=== PATIENT | female | born 1945 | race Caucasian/White ===

== ENCOUNTER 2016-07-14 08:15 | Emergency (ER) | payer OTHER ==
[2016-07-14 08:21] VITALS: TEMP 97.5; BMI 24.7
[2016-07-14] MEDS ORDERED: KETOROLAC TROMETHAMINE 30 MG/1 ML VIAL IVPUSH ONE (09:17)
[2016-07-14] MEDS ORDERED: SODIUM CHLORIDE 1,000 ML IV SCH (09:30)
[2016-07-14 09:44] LABS: BASOPHIL 0.5 % (0-2.0); MCH 29.4 pg (25.7-33.7); MCHC 32.9 g/dl (32.0-36.0); MEAN CELL VOLUME 89.3 fl (80-96); MEAN PLT VOLUME 7.9 fl (7.5-11.1); NEUTROPHILS 78.8 % (42.8-82.8); PLATELET COUNT 400 K/MM3 (134-434); RDW 12.5 % (11.6-15.6); WHITE BLOOD COUNT 15.4 K/mm3 (4.0-10.0)
[2016-07-14] MEDS ORDERED: KETOROLAC TROMETHAMINE 30 MG/1 ML VIAL ONE (09:49)
--- NOTE | 2016-07-14 10:02 | PDOC ---
History of Present Illness - General History Source: Patient Exam Limitations: No Limitations - History of Present Illness Initial Comments: 07/14/16 10:19 The patient is a 70 year old female, accompanied by son, with a significant past medical history of diverticulitis, HTN, HLD, who presents to the emergency department with L flank pain radiating to her L lower back. The patient reports her pain is similar to her previous Colitis pain however states the back pain is new. She states her pain is associated with slight nausea , 1 episode of vomiting (nonbloody, nonbilious) and an episode of diarrhea. As per son, the patient has been on a probiotic regimen however has recently stopped. She states she took Ciproflacin and Flagyl tlast night however her pain has not resolved. The patient reports to the ED for further evaluation. She denies chest pain, headache or dizziness. She denies fever, chills, constipation. She denies dysuria, frequency, urgency or hematuria. Allergies: ibandronate sodium Past surgical history: C section, hysterectomy Social history: Noncontributory GI: Dr. Prieto PCP: Dr. Renner <Mercedes Washington - Last Filed: 07/14/16 16:41> <Jazzmine Marie - Last Filed: 07/14/16 18:01> - General Chief Complaint: Pain Stated Complaint: ABD PAIN Time Seen by Provider: 07/14/16 08:57 Past History <Mercedes Washington - Last Filed: 07/14/16 16:41> - Past Medical History GI Disorders: Yes (colitis) HTN: Yes Hypercholesterolemia: Yes - Psycho/Social/Smoking Cessation Hx Suicidal Ideation: No Smoking Status: No Smoking History: Never smoked Number of Cigarettes Smoked Daily: 0 Information on smoking cessation initiated: No Hx Alcohol Use: No Drug/Substance Use Hx: No Substance Use Type: None <Jazzmine Marie - Last Filed: 07/14/16 18:01> - Past Medical History Allergies/Adverse Reactions: Allergies Allergy/AdvReac Type Severity Reaction Status Date / Time ibandronate sodium Allergy Hives Verified 07/14/16 08:21 [From Boniva] Home Medications: Ambulatory Orders Dexlansoprazole [Dexilant -] 60 mg PO DAILY 09/25/15 Lipase/Protease/Amylase [Valentin Partida 24,000 Units Capsule] 1 each PO AC 09/25/15 Lisinopril/Hydrochlorothiazide [Lisinopril-Hctz 20-25 mg Tab] 1 each PO DAILY Simvastatin 10 mg PO HS 09/25/15 Ciprofloxacin [Cipro -] 500 mg PO Q12H #14 tablet 07/14/16 Metronidazole [Flagyl -] 500 mg PO TID #21 tablet 07/14/16 Ursodiol [Actigall] 300 mg PO BID #14 capsule 07/14/16 Review of Systems - Review of Systems Able to Perform ROS?: Yes Comments:: 07/14/16 10:19 Constitutional - Pt denies Fever, Chills, weakness, HEENT: Denies vision changes, sore throat RESPIRATORY: Denies cough, sob, hemoptysis CARDIAC: Denies chest pain, palpitations, light headedness, leg swelling ABD/GI: +LLQ abdominal pain.+ nausea. +vomiting. Denies blood per rectum, melena , diarrhea : + L flank pain. Denies dysuria, frequency, discharge MUSCULOSKELETAL - Denies back pain, joint swelling SKIN - Denies bruising, erythema, rash NEUROLOGICAL: Denies headache, numbness, focal weakness, tingling, ataxia, weakness HEMATOLOGIC: Denies anemia, easy bruising, easy bleeding <Mercedes Washington - Last Filed: 07/14/16 16:41> *Physical Exam - Vital Signs Last Vital Signs Temp Pulse Resp BP Pulse Ox 97.5 F L 70 18 135/66 99 07/14/16 08:18 07/14/16 08:18 07/14/16 08:18 07/14/16 08:18 07/14/16 08:18 - Physical Exam Comments: 07/14/16 10:19 GENERAL: The patient is awake, alert, and fully oriented, Nontoxic - in no acute distress. HEAD: Normocephalic, atraumatic. EYES: Extraocular movements intact, sclera anicteric, conjunctiva clear. ENT: Normal voice, moist mucous membranes. NECK: Normal range of motion, supple without lymphadenopathy, JVD, or masses. LUNGS: Breath sounds equal, clear to auscultation bilaterally. No wheezes, no crackles, no rales. HEART: Regular rate and rhythm, normal S1 and S2 without murmur, rub or gallop. ABDOMEN: + L sided CVA tenderness. + LUQ tenderness. Soft, normoactive bowel sounds. No guarding, no rebound. No masses. EXTREMITIES: Normal range of motion, no edema. No clubbing or cyanosis. No cords , erythema, or tenderness. NEUROLOGICAL: Fully Oriented, Alert, Normal Mood/Affect, Motor Strength 5/5. No facial asymmetry, Normal speech. SKIN: Warm, Dry, normal turgor, no rashes or lesions noted. <Mercedes Washington - Last Filed: 07/14/16 16:41> - Vital Signs Last Vital Signs Temp Pulse Resp BP Pulse Ox 97.5 F L 70 18 135/66 99 07/14/16 08:18 07/14/16 08:18 07/14/16 08:18 07/14/16 08:18 07/14/16 08:18 <Jazzmine Marie - Last Filed: 07/14/16 18:01> ED Treatment Course - LABORATORY CBC & Chemistry Diagram: 07/14/16 09:34 07/14/16 09:34 - ADDITIONAL ORDERS Additional order review: Laboratory Results 07/14/16 09:34 Sodium 135 L Potassium 4.3 Chloride 99 Carbon Dioxide 26 Anion Gap 10 BUN 11 Creatinine 0.7 D Creat Clearance w eGFR > 60 Random Glucose 99 Calcium 9.1 Total Bilirubin 0.6 D AST 19 D ALT 18 D Alkaline Phosphatase 82 Total Protein 7.4 Albumin 3.7 07/14/16 09:34 RBC 3.79 MCV 89.3 MCHC 32.9 RDW 12.5 MPV 7.9 Neutrophils % 78.8 Lymphocytes % 12.7 Monocytes % 8.0 Eosinophils % 0.0 D Basophils % 0.5 - Medications Given in the ED: ED Medications Discontinued Medications Generic Name Dose Route Start Last Admin Trade Name Freq PRN Reason Stop Dose Admin Ketorolac Tromethamine 30 mg 07/14/16 09:17 07/14/16 09:53 Toradol Injection - IVPUSH 07/14/16 09:18 30 mg ONCE ONE Administration <Mercedes Washington - Last Filed: 07/14/16 16:41> - LABORATORY CBC & Chemistry Diagram: 07/14/16 09:34 07/14/16 09:34 - ADDITIONAL ORDERS Additional order review: 07/14/16 09:34 RBC 3.79 MCV 89.3 MCHC 32.9 RDW 12.5 MPV 7.9 Neutrophils % 78.8 Lymphocytes % 12.7 Monocytes % 8.0 Eosinophils % 0.0 D Basophils % 0.5 - RADIOLOGY Radiology Studies Ordered: Category Date Time Status ABDOMEN [id number] [RAD] Stat Radiology 07/14/16 09:01 Ordered - Medications Given in the ED: ED Medications Discontinued Medications Generic Name Dose Route Start Last Admin Trade Name Angela PRN Reason Stop Dose Admin Ketorolac Tromethamine 30 mg 07/14/16 09:17 07/14/16 09:53 Toradol Injection - IVPUSH 07/14/16 09:18 30 mg ONCE ONE Administration <Jazzmine Marie - Last Filed: 07/14/16 18:01> Medical Decision Making - Medical Decision Making 07/14/16 16:26 Dr. Renner was paged via phone answering service at 16:26 and discussed the case at 16:28 Dr. Prieto was paged via phone answering service at 16:41. Awaiting call back. <Mercedes Washington - Last Filed: 07/14/16 16:41> - Medical Decision Making 07/14/16 12:24 I, Dr. Jazzmine Marie, attest that the scribes documentation that appears above has been prepared under my direction and personally reviewed by me. I confirmed that the note above accurately reflects all work, treatment, procedures, and medical decision-making performed by me. 07/14/16 17:24 Case discussed with pt's pcp,initial plan to admit to hospital with gi and sx consult, pt initialy agreed but has now decided to sign out ama, case discussed with Dr Prieto of GI recommends giving pt 1 liter of fluid prior to going ama, with one 1 gram of rocephin ivpb in ed. wants pt to receive Actigill 300mg po bid .He will see pt in office next week, pt to call on saturday for appointment. Pt also told to drink 2-3 liters of water at home orally as per Dr Prieto instructions. Pt aware of risk with signing ama and still signed ama, pt's son at bedside,both the patient and her son given opportunityto ask and have all questions answered before signing ama. Pt will return to ed for inc painin abdomen, fever or as needed. 07/14/16 17:57 <Jazzmine Marie - Last Filed: 07/14/16 18:01> *DC/Admit/Observation/Transfer - Attestations Scribe Attestion: 07/14/16 10:19 Documentation prepared by Mercedes Washington, acting as medical technologist clinical for Jazzmine Marie MD <Mercedes Washington - Last Filed: 07/14/16 16:41> - Discharge Dispostion Admit: No <Jazzmine Marie - Last Filed: 07/14/16 18:01> Diagnosis at time of Disposition: Diverticulitis - Discharge Dispostion Disposition: AGAINST MEDICAL ADVICE Condition at time of disposition: Stable - Prescriptions Prescriptions: Ursodiol [Actigall] 300 mg PO BID #14 capsule Ciprofloxacin [Cipro -] 500 mg PO Q12H #14 tablet Metronidazole [Flagyl -] 500 mg PO TID #21 tablet - Referrals Referrals: Jose Luis Prieto MD [Primary Care Provider] - Aroldo Huitron MD [Staff Physician] -
[2016-07-14] MEDS ORDERED: METRONIDAZOLE 500 MG PREMIXED 100 ML IVPB ONE ×2 (10:06→10:51)
[2016-07-14] MEDS ORDERED: LEVOFLOXACIN 500 MG IVPB 100 ML IVPB ONE ×2 (10:06→10:52)
[2016-07-14 10:13] LABS: ALBUMIN 3.7 g/dl (3.4-5.0); ALK PHOS 82 U/L (45-117); ANION GAP 10 (8-16); BILIRUBIN,TOTAL 0.6 mg/dL (0.2-1.0); CALCIUM 9.1 mg/dL (8.5-10.1); CO2 26 mmol/L (21-32); CREATININE 0.7 mg/dL (0.55-1.02); GLUCOSE,RANDOM 99 mg/dL (74-106); SGPT/ALT 18 U/L (12-78); TOT PROT 7.4 g/dl (6.4-8.2)
[2016-07-14 10:15] LABS: SGOT/AST 19 U/L (15-37)
[2016-07-14 10:17] LABS: URINE APPEARANCE CLEAR; URINE BILIRUBIN NEGATIVE (NEGATIVE); URINE BLOOD NEGATIVE (NEGATIVE); URINE COLOR LTYELLOW; URINE GLUCOSE (UA) NEGATIVE (NEGATIVE); URINE KETONE NEGATIVE (NEGATIVE); URINE LEUK ESTERASE NEGATIVE (NEGATIVE); URINE NITRITE NEGATIVE (NEGATIVE); URINE PROTEIN NEGATIVE (NEGATIVE); URINE UROBILINOGEN NEGATIVE E.U./dl (0.2-1.0)
[2016-07-14 11:39] LABS: AMYLASE 58 U/L (25-115)
[2016-07-14] MEDS ORDERED: CEFTRIAXONE 1 GM in DEXTROSE 5%-WATER - 100 ML IVPB ONE (17:21)
[2016-07-14] MEDS ORDERED: SODIUM CHLORIDE 0.9% 500 ML INFUS.BAG IV STA (17:23)
[2016-07-14 17:24] LABS: INR 1.21 (0.82-1.09); PROTHROMBIN TIME (PATIENT) 13.4 SEC (9.98-11.88)
[2016-07-14] MEDS ORDERED: CEFTRIAXONE 50 ML ONE (17:29)
[2016-07-14 17:54] VITALS: BP 120/59; PULSE 66
--- NOTE | 2016-07-15 18:18 | EKG ---
Test Reason : Blood Pressure : / mmHG Vent. Rate : 073 BPM Atrial Rate : 073 BPM P-R Int : 172 ms QRS Dur : 078 ms QT Int : 420 ms P-R-T Axes : 024 027 049 degrees QTc Int : 462 ms NORMAL SINUS RHYTHM NORMAL ECG WHEN COMPARED WITH ECG OF 04-NOV-2012 00:39, NO SIGNIFICANT CHANGE WAS FOUND Confirmed by YARELY GALINDO MD ([id number]) on 07/15/2016 6:17:52 PM Referred By: Confirmed By:YARELY GALINDO MD
== END 2016-07-14 19:16 | disposition left against medical advice (07) ==
LOC: JER 08:15
PROC: 3E03329 Introduction of Other Anti-infective into Peripheral Vein, Percutaneous Approach (ICD-10-PCS; principal; 2016-07-14)
PROC: 3E03329 Introduction of Other Anti-infective into Peripheral Vein, Percutaneous Approach (ICD-10-PCS; 2016-07-14)
PROC: 3E03329 Introduction of Other Anti-infective into Peripheral Vein, Percutaneous Approach (ICD-10-PCS; 2016-07-14)
PROC: 3E0333Z Introduction of Anti-inflammatory into Peripheral Vein, Percutaneous Approach (ICD-10-PCS; 2016-07-14)
DX: K57.92 Diverticulitis of intestine, part unspecified, without perforation or abscess without bleeding (principal); I10 Essential (primary) hypertension; E78.5 Hyperlipidemia, unspecified; E78.00 Pure hypercholesterolemia, unspecified
CPT/HCPCS: 36415; 74177-TC; 80053; 81003; 82150; 83690; 85025; 85610; 93005; 93010; 99282-25; Q9967

== ENCOUNTER 2017-08-20 17:02 | Emergency (ER) | payer OTHER ==
[2017-08-20 17:15] VITALS: TEMP 98.1; BMI 24.7
--- NOTE | 2017-08-20 17:16 | PDOC ---
Rapid Medical Evaluation Time Seen by Provider: 08/20/17 17:12 Medical Evaluation: Allergies Allergy/AdvReac Type Severity Reaction Status Date / Time ibandronate sodium Allergy Hives Verified 08/20/17 17:12 [From Sandra] 08/20/17 17:15 I have performed a brief in-person evaluation of this patient. The patient presents with a chief complaint of colitis flare up. Patient reports pain to left lower quadrant since yesterday with a bloating feeling. Denies nausea, vomiting or diarrhea. States normal stool this am with no blood Pertinent physical exam finding are NAD lungs clear bilaterally abd +tenderness to left lower quadrant I have ordered the following: labs ordered The patient will proceed to the ED for further evaluation.
[2017-08-20] MEDS ORDERED: morphine SULFATE 4 MG/ML VIAL IVPUSH STA (18:01)
[2017-08-20] MEDS ORDERED: SODIUM CHLORIDE 1,000 ML IV STA (18:01)
[2017-08-20] MEDS ORDERED: morphine SULFATE 4 MG/ML VIAL ONE (18:20)
[2017-08-20 18:45] LABS: URINE APPEARANCE SLCLOUDY; URINE BILIRUBIN NEGATIVE (<2.0 mg/dL); URINE BLOOD NEGATIVE (NEGATIVE); URINE COLOR YELLOW; URINE GLUCOSE (UA) NEGATIVE (NEGATIVE); URINE KETONE NEGATIVE (NEGATIVE); URINE LEUK ESTERASE NEGATIVE (NEGATIVE); URINE NITRITE NEGATIVE (NEGATIVE); URINE PROTEIN NEGATIVE (NEGATIVE); URINE UROBILINOGEN NEGATIVE mg/dL (0.2-1.0)
--- NOTE | 2017-08-20 19:56 | PDOC ---
History of Present Illness - General History Source: Patient Exam Limitations: No Limitations - History of Present Illness Initial Comments: 08/20/17 19:57 The patient is a 71 year old female with a significant past medical history of acute diverticulitis, colitis, colon polyps, HTN and HLD who presents to the emergency department complaining of intermittent episodes of abdominal pain radiating to LLQ since this morning. The patient describes LLQ pain as moderate to severe. The patient describes having a heavy belly. The patient reports having recurrent episodes of abdominal pain which she has been previously admitted for. Of note, patient admits her most recent colonoscopy was in June from her GI. As per patient, her GI specialist recommends evaluation for possible colostomy if patient is readmitted. The patient denies chest pain, dyspnea, headache, and dizziness. Denies fevers, chills, nausea, vomiting, diarrhea, and constipation. Denies dysuria, frequency, urgency, and hematuria. Allergies: Ibandronate sodium, Levofloxacin Past surgical history: C section, hysterectomy Social history: No reported cigarette, alcohol, or drug use. GI: Dr. Prieto PCP: Dr. Renner <Oral Mckeon - Last Filed: 08/20/17 20:04> <Marci Sauer - Last Filed: 08/21/17 00:41> - General Chief Complaint: Pain, Acute Stated Complaint: LEFT SIDE PAIN Time Seen by Provider: 08/20/17 17:12 Past History <Oral Mckeon - Last Filed: 08/20/17 20:04> - Past Medical History COPD: No GI Disorders: Yes (colitis) HTN: Yes Hypercholesterolemia: Yes - Suicide/Smoking/Psychosocial Hx Smoking Status: No Smoking History: Never smoked Number of Cigarettes Smoked Daily: 0 Hx Alcohol Use: No Drug/Substance Use Hx: No Substance Use Type: None <Marci Sauer - Last Filed: 08/21/17 00:41> - Past Medical History Allergies/Adverse Reactions: Allergies Allergy/AdvReac Type Severity Reaction Status Date / Time ibandronate sodium Allergy Hives Verified 08/20/17 17:12 [From Boniva] levofloxacin [From Levaquin] Allergy Verified 08/20/17 18:51 Home Medications: Ambulatory Orders Dexlansoprazole [Dexilant -] 60 mg PO DAILY 05/08/16 Lisinopril/Hydrochlorothiazide [Lisinopril-Hctz 20-25 mg Tab] 1 each PO DAILY Simvastatin 10 mg PO HS 09/25/15 Ursodiol [Actigall] 300 mg PO BID #14 capsule 07/14/16 Ciprofloxacin [Cipro (Restricted To Id)] 500 mg PO Q12H #20 tablet 08/20/17 Oxycodone HCl/Acetaminophen [Percocet 5-325 mg Tablet] 1 tab PO Q6H PRN #4 tablet MDD 4 08/20/17 metroNIDAZOLE [Flagyl -] 250 mg PO TID #21 tablet 08/20/17 Review of Systems - Review of Systems Able to Perform ROS?: Yes Comments:: 08/20/17 19:57 CONSTITUTIONAL: Absent: fever, chills, diaphoresis, generalized weakness, malaise, loss of appetite HEENT: Absent: rhinorrhea, nasal congestion, throat pain, throat swelling, difficulty swallowing, mouth swelling, ear pain, eye pain, visual Changes CARDIOVASCULAR: Absent: chest pain, syncope, palpitations, irregular heart rate, lightheadedness , peripheral edema RESPIRATORY: Absent: cough, shortness of breath, dyspnea with exertion, orthopnea, wheezing, stridor, hemoptysis GASTROINTESTINAL: +abdominal pain. Absent: abdominal distension, nausea, vomiting, diarrhea, constipation, melena, hematochezia GENITOURINARY: Absent: dysuria, frequency, urgency, hesitancy, hematuria, flank pain, genital pain MUSCULOSKELETAL: Absent: myalgia, arthralgia, joint swelling SKIN: Absent: rash, itching, pallor HEMATOLOGIC/IMMUNOLOGIC: Absent: easy bleeding, easy bruising, lymphadenopathy, frequent infections ENDOCRINE: Absent: unexplained weight gain, unexplained weight loss, heat intolerance, cold intolerance NEUROLOGIC: Absent: headache, focal weakness or paresthesias, dizziness, unsteady gait, seizure, mental status changes, bladder or bowel incontinence PSYCHIATRIC: Absent: anxiety, depression, suicidal or homicidal ideation, hallucinations. <Oral Mckeon - Last Filed: 08/20/17 20:04> *Physical Exam - Vital Signs Last Vital Signs Temp Pulse Resp BP Pulse Ox 98.1 F 83 19 135/50 100 08/20/17 17:12 08/20/17 17:12 08/20/17 17:12 08/20/17 17:12 08/20/17 17:12 - Physical Exam Comments: 08/20/17 19:58 GENERAL: Well developed, well nourished. Awake and alert. No acute distress. HEENT: Normocephalic, atraumatic. PERRLA, EOMI. No conjunctival pallor. Sclera are non- icteric. Moist mucous membranes. Oropharynx is clear. NECK: Supple. Full ROM. No JVD. Carotid pulses 2+ and symmetric, without bruits. No thyromegaly. No lymphadenopathy. CARDIOVASCULAR: Regular rate and rhythm. No murmurs, rubs, or gallops. Distal pulses are 2+ and symmetric. PULMONARY: No evidence of respiratory distress. Lungs clear to auscultation bilaterally. No wheezing, rales or rhonchi. ABDOMINAL: +Tenderness to LLQ. +Hyperactive bowel sounds. Soft. Non-distended. No rebound or guarding. No organomegaly. MUSCULOSKELETAL Normal range of motion at all joints. No bony deformities or tenderness. No CVA tenderness. EXTREMITIES: No cyanosis. No clubbing. No edema. No calf tenderness. SKIN: Warm and dry. Normal capillary refill. No rashes. No jaundice. NEUROLOGICAL: Alert, awake, appropriate. Cranial nerves 2-12 intact. No deficits to light touch and temperature in face, upper extremities and lower extremities. No motor deficits in the in face, upper extremities and lower extremities. Normoreflexic in the upper and lower extremities. Normal speech. Toes are down- going bilaterally. Gait is normal without ataxia. PSYCHIATRIC: Cooperative. Good eye contact. Appropriate mood and affect. <Oral Mckeon - Last Filed: 08/20/17 20:04> - Vital Signs Last Vital Signs Temp Pulse Resp BP Pulse Ox 98.1 F 83 19 135/50 100 08/20/17 17:12 08/20/17 17:12 08/20/17 17:12 08/20/17 17:12 08/20/17 17:12 <Marci Sauer - Last Filed: 08/21/17 00:41> ED Treatment Course - LABORATORY CBC & Chemistry Diagram: 08/20/17 17:45 08/20/17 17:45 - ADDITIONAL ORDERS Additional order review: Laboratory Results 08/20/17 08/20/17 18:24 17:45 Sodium Cancelled Potassium Cancelled Chloride Cancelled Carbon Dioxide Cancelled Anion Gap Cancelled BUN Cancelled Creatinine Cancelled Creat Clearance w eGFR Cancelled Random Glucose Cancelled Calcium Cancelled Total Bilirubin Cancelled AST Cancelled ALT Cancelled Alkaline Phosphatase Cancelled Total Protein Cancelled Albumin Cancelled Urine Color Yellow Urine Appearance Slcloudy Urine pH 7.0 Ur Specific [place] 1.009 Urine Protein Negative Urine Glucose (UA) Negative Urine Ketones Negative Urine Blood Negative Urine Nitrite Negative Urine Bilirubin Negative Urine Urobilinogen Negative Ur Leukocyte Esterase Negative - Medications Given in the ED: ED Medications Discontinued Medications Generic Name Dose Route Start Last Admin Trade Name Tuq PRN Reason Stop Dose Admin Levofloxacin 500 mg in 100 mls @ 100 mls/hr 08/20/17 17:58 08/20/17 18:25 Levaquin 500 Mg Premixed Ivpb - IVPB 08/20/17 18:57 100 mls/hr ONCE ONE Administration Metronidazole 500 mg in 100 mls @ 100 mls/hr 08/20/17 17:59 08/20/17 18:25 Flagyl 500mg Premixed Ivpb - IVPB 08/20/17 18:58 100 mls/hr ONCE ONE Administration Sodium Chloride 1,000 mls @ 1,000 mls/hr 08/20/17 18:01 08/20/17 18:25 Normal Saline - IV 08/20/17 19:00 1,000 mls/hr ASDIR STA Administration Morphine Sulfate 4 mg 08/20/17 18:01 08/20/17 18:25 Morphine Sulfate IVPUSH 08/20/17 18:02 4 mg ONCE STA Administration <Oral Mckeon - Last Filed: 08/20/17 20:04> - LABORATORY CBC & Chemistry Diagram: 08/20/17 17:45 08/20/17 19:26 - ADDITIONAL ORDERS Additional order review: Laboratory Results 08/20/17 08/20/17 18:24 17:45 Sodium Cancelled Potassium Cancelled Chloride Cancelled Carbon Dioxide Cancelled Anion Gap Cancelled BUN Cancelled Creatinine Cancelled Creat Clearance w eGFR Cancelled Random Glucose Cancelled Calcium Cancelled Total Bilirubin Cancelled AST Cancelled ALT Cancelled Alkaline Phosphatase Cancelled Total Protein Cancelled Albumin Cancelled Urine Color Yellow Urine Appearance Slcloudy Urine pH 7.0 Ur Specific [place] 1.009 Urine Protein Negative Urine Glucose (UA) Negative Urine Ketones Negative Urine Blood Negative Urine Nitrite Negative Urine Bilirubin Negative Urine Urobilinogen Negative Ur Leukocyte Esterase Negative - Medications Given in the ED: ED Medications Discontinued Medications Generic Name Dose Route Start Last Admin Trade Name Angela PRN Reason Stop Dose Admin Levofloxacin 500 mg in 100 mls @ 100 mls/hr 08/20/17 17:58 08/20/17 18:25 Levaquin 500 Mg Premixed Ivpb - IVPB 08/20/17 18:57 100 mls/hr ONCE ONE Administration Metronidazole 500 mg in 100 mls @ 100 mls/hr 08/20/17 17:59 08/20/17 18:25 Flagyl 500mg Premixed Ivpb - IVPB 08/20/17 18:58 100 mls/hr ONCE ONE Administration Sodium Chloride 1,000 mls @ 1,000 mls/hr 08/20/17 18:01 08/20/17 18:25 Normal Saline - IV 08/20/17 19:00 1,000 mls/hr ASDIR STA Administration Morphine Sulfate 4 mg 08/20/17 18:01 08/20/17 18:25 Morphine Sulfate IVPUSH 08/20/17 18:02 4 mg ONCE STA Administration <Marci Sauer - Last Filed: 08/21/17 00:41> Medical Decision Making - Medical Decision Making 08/20/17 23:31 81-year-old female with a history of recurrent diverticulitis presents with left lower quadrant pain. She denies fever, chills, nausea, vomiting or bloody stools. She has some discomfort upon deep palpation in left lower quadrant CBC is unremarkable. There is no leukocytosis Chemistries were reviewed I spoke with her air quality specialist. Dr. Prieto and he felt that after IV fluids and a gram of Rocephin she could be discharged home The plan is for her to take Cipro and Flagyl by mouth and follow-up with air quality specialist. She has had Cipro by mouth in the past with no problem. However, today she got Levaquin IV and had some minor irritation at the Hep- Lock site, so it was discontinued. She did not have any hives, sensation of throat closing Patient has had multiple CAT scans that have shown diverticulitis. After discussion with the family and the air quality specialist. It was decided to empirically treat her for diverticulitis with the understanding if her symptoms should not resolve or continued, she should return for imaging studies IMP probable diverticulitis 08/20/17 23:37 <Marci Sauer - Last Filed: 08/21/17 00:41> *DC/Admit/Observation/Transfer - Attestations Scribe Attestion: 08/20/17 20:04 Documentation prepared by Oral Mckeon, acting as medical librarian for Marci Sauer MD. <Oral Mckeon - Last Filed: 08/20/17 20:04> <Marci Sauer - Last Filed: 08/21/17 00:41> Diagnosis at time of Disposition: Diverticulitis Qualifiers: Diverticulitis site: unspecified part of intestinal tract Diverticulitis bleeding: without bleeding Diverticulitis complication: unspecified complication status Qualified Code(s): K57.92 - Diverticulitis of intestine, part unspecified, without perforation or abscess without bleeding - Discharge Dispostion Disposition: HOME Condition at time of disposition: Stable - Prescriptions Prescriptions: Ciprofloxacin [Cipro (Restricted To Id)] 500 mg PO Q12H #20 tablet metroNIDAZOLE [Flagyl -] 250 mg PO TID #21 tablet Oxycodone HCl/Acetaminophen [Percocet 5-325 mg Tablet] 1 tab PO Q6H PRN #4 tablet MDD 4 PRN Reason: Severe Pain - Referrals Referrals: Khoa Renner MD [Primary Care Provider] - Jose Luis Prieto MD [Staff Physician] - - Patient Instructions Printed Discharge Instructions: DI for Diverticulitis Additional Instructions: 1-please sheepskin pickler your antibiotics 2- follow up with your air quality specialist 3-rest 4-keep hydrated - Post Discharge Activity Forms/Work/School Notes: Back to Work
[2017-08-20 21:07] LABS: BASO % 0.5 % (0-2.0); EOS % 1.1 % (0-4.5); HEMATOCRIT 32.1 % (32.4-45.2); LYMPH % 26.4 % (8-40); MCH 30.6 pg (25.7-33.7); MCHC 34.1 g/dl (32.0-36.0); MEAN CELL VOLUME 89.6 fl (80-96); MONO % 7.9 % (3.8-10.2); NEUT % 64.1 % (42.8-82.8); PLATELET COUNT 414 K/MM3 (134-434); RBC 3.58 M/mm3 (3.60-5.2); RDW 12.5 % (11.6-15.6); WHITE BLOOD COUNT 8.7 K/mm3 (4.0-10.0)
[2017-08-20 21:30] LABS: ALBUMIN 3.6 g/dl (3.4-5.0); ANION GAP 5 (8-16); BILIRUBIN,TOTAL 0.1 mg/dL (0.2-1.0); BLOOD UREA NITROGEN 9 mg/dL (7-18); CALCIUM 8.7 mg/dL (8.5-10.1); CHLORIDE 99 mmol/L (98-107); CO2 28 mmol/L (21-32); CREATININE 0.7 mg/dL (0.55-1.02); GLUCOSE,RANDOM 101 mg/dL (74-106); POTASSIUM 4.5 mmol/L (3.5-5.1); SGOT/AST 11 U/L (15-37); SGPT/ALT 16 U/L (12-78); SODIUM 132 mmol/L (136-145); TOT PROT 7.2 g/dl (6.4-8.2)
[2017-08-20 21:31] LABS: ALK PHOS 70 U/L (45-117)
[2017-08-20] MEDS ORDERED: CEFTRIAXONE 1,000 MG in DEXTROSE 5%-WATER - 50 ML IVPB STA (22:34)
[2017-08-20] MEDS ORDERED: CEFTRIAXONE 1 GM/50 ML BAG ONE ×2 (22:37→22:39)
[2017-08-20] MEDS ORDERED: POTASSIUM CHLORIDE TABS 20 MEQ TABLET.ER (FP) PO ONE (23:21)
[2017-08-20 23:36] VITALS: BP 124/50; PULSE 66
== END 2017-08-21 00:51 | disposition home or self-care (01) ==
LOC: JER 17:02
PROC: 3E03329 Introduction of Other Anti-infective into Peripheral Vein, Percutaneous Approach (ICD-10-PCS; principal; 2017-08-20)
PROC: 3E03329 Introduction of Other Anti-infective into Peripheral Vein, Percutaneous Approach (ICD-10-PCS; 2017-08-20)
PROC: 3E03329 Introduction of Other Anti-infective into Peripheral Vein, Percutaneous Approach (ICD-10-PCS; 2017-08-20)
PROC: 3E033GC Introduction of Other Therapeutic Substance into Peripheral Vein, Percutaneous Approach (ICD-10-PCS; 2017-08-20)
DX: K57.92 Diverticulitis of intestine, part unspecified, without perforation or abscess without bleeding (principal); I10 Essential (primary) hypertension; E78.00 Pure hypercholesterolemia, unspecified; Z87.19 Personal history of other diseases of the digestive system
CPT/HCPCS: 36415; 80053; 81003; 85025; 99283-25; J7030

== ENCOUNTER 2018-08-22 14:44 | Emergency (ER) | payer OTHER ==
[2018-08-22 14:49] VITALS: TEMP 98.2; BMI 24.1
--- NOTE | 2018-08-22 14:51 | PDOC ---
Rapid Medical Evaluation Chief Complaint: Pain, Acute Medical Evaluation: Allergies Allergy/AdvReac Type Severity Reaction Status Date / Time ibandronate sodium Allergy Hives Verified 08/22/18 14:46 [From Boniva] levofloxacin [From Levaquin] AdvReac Itching Verified 08/22/18 14:46 08/22/18 14:47 I have performed a brief in-person evaluation of this patient. The patient presents with a chief complaint of: abd pain x 2 days ,colitis pain / multiple flares. no fevers Pertinent physical exam findings: LLQ and gen abd. I have ordered the following: CBC, CMP, Lipase, UA The patient will proceed to the ED for further evaluation. Discharge Disposition - Diagnosis Abdominal pain, Diverticulitis - Discharge Dispostion Disposition: HOME Condition at time of disposition: Improved - Prescriptions Prescriptions: Ciprofloxacin HCl [Cipro] 500 mg PO BID #14 tablet metroNIDAZOLE [Flagyl -] 500 mg PO TID #21 tablet Oxycodone HCl/Acetaminophen [Percocet 5-325 mg Tablet] 1 - 2 tab PO Q6H PRN #12 tab MDD 4 PRN Reason: Pain - Referrals Referrals: Jose Luis Prieto MD [Staff Physician] - Khoa Renner MD [Primary Care Provider] - - Patient Instructions Printed Discharge Instructions: DI for Diverticulitis Additional Instructions: Please take antibiotics starting tomorrow since you were given your first doses here in the emergency room. Please also contact your senior linux administrator in regards to today's CT findings. Return to emergency room if your symptoms worsen - Post Discharge Activity
[2018-08-22 15:26] LABS: BASO % 0.6 % (0-2.0); EOS % 0.2 % (0-4.5); HEMOGLOBIN 10.6 GM/dL (10.7-15.3); LYMPH % 12.1 % (8-40); MCH 29.8 pg (25.7-33.7); MEAN CELL VOLUME 90.2 fl (80-96); MEAN PLT VOLUME 7.5 fl (7.5-11.1); MONO % 9.5 % (3.8-10.2); NEUT % 77.6 % (42.8-82.8); PLATELET COUNT 474 K/MM3 (134-434); RBC 3.55 M/mm3 (3.60-5.2); RDW 12.2 % (11.6-15.6); WHITE BLOOD COUNT 12.6 K/mm3 (4.0-10.0)
[2018-08-22 15:34] LABS: EPI CELLS 0.7 /HPF (0-5); URINE APPEARANCE CLEAR; URINE BACTERIA 2.4 /hpf (NEGATIVE); URINE BILIRUBIN NEGATIVE (NEGATIVE); URINE CASTS 0 /hpf (0-8); URINE COLOR YELLOW; URINE GLUCOSE (UA) NEGATIVE (NEGATIVE); URINE KETONE TRACE (NEGATIVE); URINE LEUK ESTERASE 1+ (NEGATIVE); URINE NITRITE NEGATIVE (NEGATIVE); URINE PROTEIN NEGATIVE (NEGATIVE); URINE RBC 8 /hpf (0-4); URINE WBC 2 /hpf (0-5)
[2018-08-22 15:47] LABS: ALBUMIN 3.7 g/dl (3.4-5.0); ALK PHOS 76 U/L (45-117); ANION GAP 7 MMOL/L (8-16); BILIRUBIN,TOTAL 0.9 mg/dL (0.2-1); BLOOD UREA NITROGEN 8 mg/dL (7-18); CALCIUM 9.4 mg/dL (8.5-10.1); CHLORIDE 95 mmol/L (98-107); CO2 27 mmol/L (21-32); CREATININE 0.7 mg/dL (0.55-1.3); GLUCOSE,RANDOM 110 mg/dL (74-106); LIPASE 129 U/L (73-393); POTASSIUM 4.1 mmol/L (3.5-5.1); SGOT/AST 8 U/L (15-37); SGPT/ALT 15 U/L (13-61); SODIUM 128 mmol/L (136-145); TOT PROT 7.7 g/dl (6.4-8.2)
[2018-08-22] MEDS ORDERED: morphine CARPU-JECT 2 MG/1 ML DISP.SYRIN IVPUSH ONE (15:47)
[2018-08-22] MEDS ORDERED: SODIUM CHLORIDE 1,000 ML IV STA (15:48)
[2018-08-22] MEDS ORDERED: MORPHINE SULFATE 2 MG/ML VIAL ONE (16:01)
[2018-08-22] MEDS: CEFTRIAXONE 1 GM in DEXTROSE 5%-WATER - 50 ML IVPB ONE ×2 (17:09→18:21)
--- NOTE | 2018-08-22 17:13 | PDOC ---
History of Present Illness - General Chief Complaint: Pain, Acute Stated Complaint: ABD PAIN Time Seen by Provider: 08/22/18 15:44 History Source: Patient Exam Limitations: No Limitations - History of Present Illness Travel History: No Initial Comments: 08/22/18 17:06 72-year-old female presents the emergency room with complaints of left lower quadrant cramping for the past few days without nausea, vomiting, fever, chills , diarrhea abdominal distention or urinary complaints. Patient with history of recurrent colitis and is under the care of Dr. Prieto and with consultation to Dr. santana to consider colon resection/surgery. Patient has no other complaints at this time. Last colitis flareup was approximately 3 months ago. Quality: reports: mild Abdominal Pain Onset Location: reports: LLQ Pain Radiation: reports: no radiation Activities at Onset: reports: none Aggravating Factors: improves with: None Alleviating Factors: improves with: None Past History - Travel Traveled outside of the country in the last 30 days: No Close contact w/someone who was outside of country & ill: No - Past Medical History Allergies/Adverse Reactions: Allergies Allergy/AdvReac Type Severity Reaction Status Date / Time ibandronate sodium Allergy Hives Verified 08/22/18 14:46 [From Boniva] levofloxacin [From Levaquin] AdvReac Itching Verified 08/22/18 14:46 Home Medications: Ambulatory Orders Dexlansoprazole [Dexilant -] 60 mg PO DAILY 09/25/15 Lisinopril/Hydrochlorothiazide [Lisinopril-Hctz 20-25 mg Tab] 1 each PO DAILY Simvastatin 10 mg PO HS 09/25/15 metroNIDAZOLE [Flagyl -] 250 mg PO TID #21 tablet 08/20/17 Ciprofloxacin HCl [Cipro] 500 mg PO BID #14 tablet 08/22/18 Dicyclomine HCl 10 mg PO BID 08/22/18 Lipase/Protease/Amylase [Valentin Partida 24,000 Units Capsule] 1 each PO TID 08/22/18 Oxycodone HCl/Acetaminophen [Percocet 5-325 mg Tablet] 1 - 2 tab PO Q6H PRN #12 tab MDD 4 08/22/18 metroNIDAZOLE [Flagyl -] 500 mg PO TID #21 tablet 08/22/18 COPD: No GI Disorders: Yes (colitis) HTN: Yes Hypercholesterolemia: Yes - Immunization History Immunization Up to Date: Yes - Suicide/Smoking/Psychosocial Hx Smoking Status: No Smoking History: Never smoked Number of Cigarettes Smoked Daily: 0 Information on smoking cessation initiated: No Hx Alcohol Use: No Drug/Substance Use Hx: No Substance Use Type: None Patient Lives Alone: No Lives with/in: son Abd/GI Specific PMHX - Complaint Specific PMHX Colitis: Yes Review of Systems - Review of Systems Able to Perform ROS?: No Is the patient limited O[place]i proficient: No Constitutional: No: Symptoms Reported HEENTM: No: Symptoms Reported Respiratory: No: Symptoms reported Cardiac (ROS): No: Symptoms Reported ABD/GI: Yes: Abdominal cramping. No: Constipated, Diarrhea, Nausea, Vomiting : No: Symptoms Reported Musculoskeletal: No: Symptoms Reported Integumentary: No: Symptoms Reported Neurological: No: Symptoms reported Hematologic/Lymphatic: No: Symptoms Reported *Physical Exam - Vital Signs Last Vital Signs Temp Pulse Resp BP Pulse Ox 98.2 F 88 20 140/78 98 08/22/18 14:46 08/22/18 14:46 08/22/18 14:46 08/22/18 14:46 08/22/18 14:46 - Physical Exam General Appearance: Yes: Nourished, Appropriately Dressed. No: Apparent Distress HEENT: positive: EOMI, RYAN. negative: Pale Conjunctivae Neck: positive: Supple Respiratory/Chest: positive: Lungs Clear, Normal Breath Sounds. negative: Respiratory Distress, Accessory Muscle Use Cardiovascular: positive: Regular Rhythm, Regular Rate. negative: Murmur Gastrointestinal/Abdominal: positive: Normal Bowel Sounds, Soft, Tenderness (llq , left suprapubic). negative: Distended Musculoskeletal: negative: CVA Tenderness Extremity: positive: Normal Capillary Refill. negative: Pedal Edema Integumentary: positive: Normal Color, Warm, Moist Neurologic: positive: Motor Strength 5/5 (ambulatory) ED Treatment Course - LABORATORY CBC & Chemistry Diagram: 08/22/18 15:15 08/22/18 15:15 - ADDITIONAL ORDERS Additional order review: Laboratory Results 08/22/18 08/22/18 15:15 15:15 Sodium 128 L Potassium 4.1 Chloride 95 L Carbon Dioxide 27 Anion Gap 7 L BUN 8 Creatinine 0.7 Creat Clearance w eGFR 82.73 Random Glucose 110 H Calcium 9.4 Total Bilirubin 0.9 AST 8 L ALT 15 Alkaline Phosphatase 76 Total Protein 7.7 Albumin 3.7 Lipase 129 Urine Color Yellow Urine Appearance Clear Urine pH 7.0 Ur Specific [place] 1.017 Urine Protein Negative Urine Glucose (UA) Negative Urine Ketones Trace H Urine Blood 1+ H Urine Nitrite Negative Urine Bilirubin Negative Urine Urobilinogen 1.0 Ur Leukocyte Esterase 1+ H Urine WBC (Auto) 2 Urine RBC (Auto) 8 Urine Casts (Auto) 0 U Epithel Cells (Auto) 0.7 Urine Bacteria (Auto) 2.4 08/22/18 15:15 RBC 3.55 L MCV 90.2 MCHC 33.0 RDW 12.2 MPV 7.5 D Neutrophils % 77.6 D Lymphocytes % 12.1 D Monocytes % 9.5 Eosinophils % 0.2 D Basophils % 0.6 - RADIOLOGY Radiology Studies Ordered: Category Date Time Status ABDOMEN & PELVIS CT W/O CONTR [CT] Stat CT Scan 08/22/18 16:51 Ordered - Medications Given in the ED: ED Medications Discontinued Medications Generic Name Dose Route Start Last Admin Trade Name Angela PRN Reason Stop Dose Admin Sodium Chloride 1,000 mls @ 1,000 mls/hr 08/22/18 15:48 08/22/18 17:02 Normal Saline - IV 08/22/18 16:47 1,000 mls/hr ASDIR STA Administration Morphine Sulfate 2 mg 08/22/18 15:47 08/22/18 17:02 Morphine Injection - IVPUSH 08/22/18 15:48 2 mg ONCE ONE Administration Medical Decision Making - Medical Decision Making 08/22/18 16:10 CC: llq pain, no other complaints, hx colitis Exam: llq tenderness Plan: IV, LABS, URINE, mso4, iv cef, iv flagyl, ivf, abd ct Pt seen by [facility] j[facility] w/ the above 08/22/18 17:13 Laboratory Tests 08/22/18 08/22/18 08/22/18 15:15 15:15 15:15 WBC 12.6 H Hgb 10.6 L Hct 32.0 L Plt Count 474 H Absolute Neuts (auto) 9.7 H Sodium 128 L Potassium 4.1 Chloride 95 L Carbon Dioxide 27 Anion Gap 7 L BUN 8 Creatinine 0.7 Creat Clearance w eGFR 82.73 Random Glucose 110 H Calcium 9.4 Total Bilirubin 0.9 AST 8 L ALT 15 Alkaline Phosphatase 76 Total Protein 7.7 Albumin 3.7 Lipase 129 Urine Ketones Trace H Urine Blood 1+ H Urine Nitrite Negative Ur Leukocyte Esterase 1+ H Urine WBC (Auto) 2 Urine RBC (Auto) 8 08/22/18 18:46 CT shows acute sigmoid diverticulitis with no definitive at evidence of pneumoperitoneum. Patient requesting to go home. Patient will be discharged with Levaquin and Flagyl along with a few tablets of Percocet. *DC/Admit/Observation/Transfer Diagnosis at time of Disposition: Abdominal pain, Diverticulitis - Discharge Dispostion Disposition: HOME Condition at time of disposition: Improved - Referrals Referrals: Khoa Renner MD [Primary Care Provider] - Jose Luis Prieto MD [Staff Physician] - - Patient Instructions Printed Discharge Instructions: DI for Diverticulitis Additional Instructions: Please take antibiotics starting tomorrow since you were given your first doses here in the emergency room. Please also contact your metal dealer in regards to today's CT findings. Return to emergency room if your symptoms worsen - Post Discharge Activity
[2018-08-22] MEDS ORDERED: ACETAMINOPHEN 1000 MG/100 ML VIAL (NON FORMULARY) IVPB ONE (18:52)
[2018-08-22] MEDS ORDERED: ACETAMINOPHEN INJECTION 100 ML IVPB ONE (19:16)
[2018-08-22 21:13] VITALS: BP 127/56; PULSE 91
== END 2018-08-22 21:06 | disposition home or self-care (01) ==
LOC: JER 14:44
PROC: 3E03329 Introduction of Other Anti-infective into Peripheral Vein, Percutaneous Approach (ICD-10-PCS; principal; 2018-08-22)
PROC: 3E03329 Introduction of Other Anti-infective into Peripheral Vein, Percutaneous Approach (ICD-10-PCS; 2018-08-22)
PROC: 3E033NZ Introduction of Analgesics, Hypnotics, Sedatives into Peripheral Vein, Percutaneous Approach (ICD-10-PCS; 2018-08-22)
PROC: 3E033GC Introduction of Other Therapeutic Substance into Peripheral Vein, Percutaneous Approach (ICD-10-PCS; 2018-08-22)
DX: K57.92 Diverticulitis of intestine, part unspecified, without perforation or abscess without bleeding (principal); I10 Essential (primary) hypertension; E78.00 Pure hypercholesterolemia, unspecified
CPT/HCPCS: 36415; 74176-TC; 80053; 81003; 83690; 85025; 87086; 96365; 96367; 96375; 99283-25; J0131; J7030

== ENCOUNTER 2019-08-03 09:45 | Emergency (ER) | payer OTHER ==
[2019-08-03 10:47] VITALS: BMI 24.2
--- NOTE | 2019-08-03 11:10 | PDOC ---
History of Present Illness - General Chief Complaint: Chest Pain Stated Complaint: CHEST PAIN Time Seen by Provider: 08/03/19 10:40 History Source: Patient Exam Limitations: No Limitations - History of Present Illness Initial Comments: 08/03/19 11:05 73F with a PMH of acute diverticulitis, colitis, colon polyps, HTN and HLD who presents to the ER with multiple complaints. Patient states that she woke up this morning around 7:30 AM and felt left hand numbness which affected her pinky and ring finger down to her mid forearm. About 20 to 30 minutes after that, she had left foot numbness. The numbness is still present but she stated it is improved slightly. Around 830 this morning she says she developed left-sided, a Trumatic, nonreproducible chest pressure. The pressure is non-radiating pain associated with fever, chills, diaphoresis, nausea, vomiting, palpitations, ligh theadedness, shortness of breath. Past History - Past Medical History Allergies/Adverse Reactions: Allergies Allergy/AdvReac Type Severity Reaction Status Date / Time ibandronate sodium Allergy Hives Verified 08/03/19 09:48 [From Boniva] levofloxacin [From Levaquin] AdvReac Itching Verified 08/03/19 09:48 Home Medications: Ambulatory Orders Lisinopril [Prinivil] 20 mg PO DAILY 08/03/19 Methimazole [Tapazole] 5 mg PO ASDIR 08/03/19 Pantoprazole Sodium [Protonix] 40 mg PO DAILY 08/03/19 Simvastatin [Zocor] 20 mg PO HS 08/03/19 COPD: No GI Disorders: Yes (colitis) HTN: Yes Hypercholesterolemia: Yes - Immunization History Immunization Up to Date: Yes - Psycho Social/Smoking Cessation Hx Smoking Status: No Smoking History: Never smoked Number of Cigarettes Smoked Daily: 0 Hx Alcohol Use: No Drug/Substance Use Hx: No Substance Use Type: None Review of Systems - Review of Systems Able to Perform ROS?: Yes Comments:: 08/03/19 11:09 GENERAL/CONSTITUTIONAL: No fever or chills. No weakness. HEAD, EYES, EARS, NOSE AND THROAT: No change in vision. No ear pain or discharge. No sore throat. CARDIOVASCULAR: + for chest pain. No palpitations or lightheadedness. RESPIRATORY: No cough, wheezing, shortness of breath, or hemoptysis. GASTROINTESTINAL: No abdominal pain, nausea, vomiting, diarrhea, or constipation. GENITOURINARY: No dysuria, frequency, hematuria, or change in urination. MUSCULOSKELETAL: No joint or muscle swelling or pain. No neck or back pain. SKIN: No rash or lesions. NEUROLOGIC: + for numbness. No headache, tingling, focal weakness, loss of consciousness, or change in strength/sensation. Is the patient limited Yakut proficient: No *Physical Exam - Vital Signs Last Vital Signs Temp Pulse Resp BP Pulse Ox 97.8 F 78 16 160/60 100 08/03/19 09:46 08/03/19 09:46 08/03/19 09:46 08/03/19 09:46 08/03/19 09:46 - Physical Exam 08/03/19 11:09 GENERAL: Well developed, well nourished. Awake and alert. No acute distress. HEENT: Normocephalic, atraumatic. Hearing grossly normal. Moist mucous membranes. PERRLA, EOMI. No conjunctival pallor. Sclera are non-icteric. NECK: Supple. Full ROM. No JVD. CARDIOVASCULAR: Regular rate and rhythm. No murmurs, rubs, or gallops. PULMONARY: No evidence of respiratory distress. Lungs clear to auscultation bilaterally. No wheezing, rales, or rhonchi. ABDOMINAL: Soft. Non-tender. Non-distended. No rebound or guarding. GENITOURINARY: No CVA tenderness bilaterally. MUSCULOSKELETAL: Normal range of motion at all joints. No bony deformities or tenderness. EXTREMITIES: No cyanosis. No clubbing. No edema. No calf tenderness or swelling. SKIN: Warm and dry. Normal capillary refill. No rashes. No jaundice. NEUROLOGICAL: Alert, awake, appropriate. Cranial nerves 2-12 intact. No deficits to light touch and temperature in face, upper extremities and lower extremities. 5/5 strength in deltoids, biceps, triceps, quadriceps, hamstrings, and gastrocnemius. Normal speech. Gait is normal without ataxia. PSYCHIATRIC: Cooperative. Good eye contact. Appropriate mood and affect. Heart Score/ECG Review - History History: Slightly suspicious - Electrocardiogram EKG: Normal - Age Age: >/= 65 - Risk Factors Risk Factors Heart Score: Yes Hx Hypercholesterolemia, Yes Hx Hypertension Based on the list above the patient has:: 1-2 risk factors - Troponin Troponin: </= normal limit - Score Heart Score - Total: 3 ED Treatment Course - LABORATORY CBC & Chemistry Diagram: 08/03/19 11:00 08/03/19 11:00 - RADIOLOGY Radiology Studies Ordered: Category Date Time Status HEAD CT WITHOUT CONTRAST [CT] Stat CT Scan 08/03/19 11:03 Ordered CHEST PA & LAT [RAD] Stat Radiology 08/03/19 11:03 Ordered Medical Decision Making - Medical Decision Making 08/03/19 11:10 72F with multiple medical problems who presents with complaints of numbness and chest pressure. Chest pain work up to include ruling out ACS, pneumonia, cardiom yopathy. Will also take a head CT to evaluate for any intracranial causes of numbness. HEART score of 3. Will likely 2 troponin and d/c. 08/03/19 12:11 CBC, CMP, troponin negative. Pending CXR and CTH. 08/03/19 13:59 CXR negative. CTH negative. Will obtain trop x 2 and d/c home if negative. 08/03/19 14:57 Repeat trop negative. Will d/c with PCP f/u. Discharge - Discharge Information Problems reviewed: Yes Clinical Impression/Diagnosis: Chest pain, atypical Condition: Good Disposition: HOME - Admission No - Follow up/Referral Referrals: Khoa Renner MD [Primary Care Provider] - Fidel Fuentes MD [Staff Physician] - - Patient Discharge Instructions Patient Printed Discharge Instructions: DI for Atypical Chest Pain Additional Instructions: Your ER visit is not complete until your follow up with your primary care physician. Please follow up with your primary care physician in 1-2 days. Please return to the ER if you have any signs or symptoms of chest pain, shortness of breath, uncontrollable fever, chills, nausea, vomiting, numbness, tingling, or weakness in any part of your body, changes in vision, or slurred speech. Please take your medications as prescribed. Please return to the ER if symptoms persist, worsen, or new symptoms arise. - Post Discharge Activity
[2019-08-03 11:19] LABS: HEMATOCRIT 33.2 % (32.4-45.2); HEMOGLOBIN 10.8 GM/dL (10.7-15.3); LYMPH % 27.3 % (8-40); MCH 30.6 pg (25.7-33.7); MCHC 32.6 g/dl (32.0-36.0); MEAN CELL VOLUME 93.7 fl (80-96); MEAN PLT VOLUME 8.2 fl (7.5-11.1); MONO % 7.2 % (3.8-10.2); NEUT % 63.5 % (42.8-82.8); PLATELET COUNT 426 K/MM3 (134-434); RBC 3.54 M/mm3 (3.60-5.2); RDW 13.1 % (11.6-15.6); WHITE BLOOD COUNT 5.7 K/mm3 (4.0-10.0)
[2019-08-03 11:26] LABS: INR 1.07 (0.83-1.09); PROTHROMBIN TIME (PATIENT) 12.6 SEC (9.7-13.0)
[2019-08-03 11:29] LABS: ACTIVATED PTT 35.1 SECONDS (25.2-36.5)
[2019-08-03 11:53] LABS: ALBUMIN 3.9 g/dl (3.4-5.0); ALK PHOS 75 U/L (45-117); ANION GAP 7 MMOL/L (8-16); BILIRUBIN,TOTAL 0.5 mg/dL (0.2-1); BLOOD UREA NITROGEN 9.4 mg/dL (7-18); CALCIUM 8.9 mg/dL (8.5-10.1); CHLORIDE 101 mmol/L (98-107); CO2 29 mmol/L (21-32); CREATININE 0.9 mg/dL (0.55-1.3); GLUCOSE,RANDOM 91 mg/dL (74-106); MAGNESIUM 1.8 mg/dL (1.8-2.4); N-TERMINAL BNP 123.5 pg/ml (5-125); POTASSIUM 4.1 mmol/L (3.5-5.1); SGOT/AST 13 U/L (15-37); SGPT/ALT 19 U/L (13-61); SODIUM 138 mmol/L (136-145)
[2019-08-03 13:14] VITALS: BP 145/60; PULSE 68; TEMP 98.4
[2019-08-03 13:31] LABS: CHOLESTEROL 201 mg/dL (50-200); HDL CHOLESTEROL 61 mg/dL (40-60); LDL CHOLESTEROL (ONLY SJRH) 108 mg/dL (5-100); TRIGLYCERIDES 220 mg/dL (0-150)
--- NOTE | 2019-08-03 14:58 | PDOC ---
Documentation entered by Brenna Crisostomo SCRIBE, acting as scribe for Dante Daniel MD. Dante Daniel MD: This documentation has been prepared by the Andressa potts Brenda, SCRIBE, under my direction and personally reviewed by me in its entirety. I confirm that the documentation accurately reflects all work, treatment, procedures, and medical decision making performed by me. Attending Attestation - Resident Resident Name: AndreasFidel - ED Attending Attestation I have performed the following: I have examined & evaluated the patient, The case was reviewed & discussed with the resident, I agree w/resident's findings & plan, Exceptions are as noted - HPI HPI: 08/03/19 11:22 The patient is a 73 year old female with a significant PMH of acute diverticulitis, colitis, colon polyps, HTN and HLD who presents to the ED for evaluation of left-sided nonreproducible chest pain, described as pressure starting at 8:30am. She reports that the CP is associated with chills, fever, diaphoresis, nausea, vomiting and SOB. She also endorses waking up this morning around 7:30am and expericing left handed numbness to her prinky and ring finger down to her arm, and about half an hour after, she felt left foot numbness. P atient notes that it has now improved slightly. Patient denies any urinary symptoms. Allergies: Per Nursing Notes - Physicial Exam PE: 08/03/19 13:42 Vitals: Triage Vital signs reviewed General Appearance: No acute distress, well nourished well developed, Head: Atraumatic, Cardiac: Regular rate and rhythym, no murmurs, no rubs, no gallops, Lungs: Clear to auscultation bilateral, good air movement bilaterally, Abdomen: Soft, non distended, normal bowel sounds, non tender to palpation Extremities: Full range of motion to all extremities, no cyanosis, clubbing, or edema Skin: Warm and dry, no rashes or lesions, no rash, no petechiae Neuro: AOX3; cranial Nerves 2-12 grossly intact, strength intact to all extremities, sensation intact to all extremities, gait normal Psych: Normal mood, normal affect - Medical Decision Making 08/03/19 14:59 Very atypical chest discomfort nonexertional pressure-like resolved troponin negative x2 nonischemic EKG 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 Patient endorses to me she will follow-up with cardiology this week Findings, the need for follow-up and strict return instructions discussed with patient. Heart Score/ECG Review - History History: Slightly suspicious - Electrocardiogram EKG: Normal - Age Age: >/= 65 - Risk Factors Risk Factors Heart Score: Yes Hx Hypercholesterolemia, Yes Hx Hypertension Based on the list above the patient has:: 1-2 risk factors - Troponin Troponin: </= normal limit - Score Heart Score - Total: 3 Discharge - Discharge Information Problems reviewed: Yes Clinical Impression/Diagnosis: Chest pain, atypical Condition: Good Disposition: HOME - Follow up/Referral Referrals: Khoa Renner MD [Primary Care Provider] - Fidel Fuentes MD [Staff Physician] - - Patient Discharge Instructions Patient Printed Discharge Instructions: DI for Atypical Chest Pain Additional Instructions: Your ER visit is not complete until your follow up with your primary care physician. Please follow up with your primary care physician in 1-2 days. Please return to the ER if you have any signs or symptoms of chest pain, shortness of breath, uncontrollable fever, chills, nausea, vomiting, numbness, tingling, or weakness in any part of your body, changes in vision, or slurred speech. Please take your medications as prescribed. Please return to the ER if symptoms persist, worsen, or new symptoms arise. - Post Discharge Activity
--- NOTE | 2019-08-03 16:07 | EKG ---
Test Reason : Blood Pressure : / mmHG Vent. Rate : 071 BPM Atrial Rate : 071 BPM P-R Int : 154 ms QRS Dur : 074 ms QT Int : 404 ms P-R-T Axes : -22 023 034 degrees QTc Int : 439 ms NORMAL SINUS RHYTHM NORMAL ECG WHEN COMPARED WITH ECG OF 14-JUL-2016 16:52, NO SIGNIFICANT CHANGE WAS FOUND Confirmed by TARA MATHUR MD ([id number]) on 08/03/2019 4:06:45 PM Referred By: Confirmed By:TARA MATHUR MD
== END 2019-08-03 15:22 | disposition home or self-care (01) ==
LOC: JER 09:45
DX: R07.89 Other chest pain (principal); I10 Essential (primary) hypertension; E78.5 Hyperlipidemia, unspecified; Z87.19 Personal history of other diseases of the digestive system; Z86.010 Personal history of colon polyps; Z88.1 Allergy status to other antibiotic agents; Z88.8 Allergy status to other drugs, medicaments and biological substances
CPT/HCPCS: 36415; 70450-TC; 71046-TC-FY; 80053; 80061; 82550; 83721; 83735; 83880; 84484; 85025; 85610; 85730; 93005; 93010; 99285-25

== ENCOUNTER 2022-07-05 00:31 | Emergency (ER) | payer OTHER ==
[2022-07-05 00:40] VITALS: BP 162/71; PULSE 61; RESP 17; TEMP 97.9; BMI 24.7
== END 2022-07-05 03:00 | disposition home or self-care (01) ==
LOC: JER 00:31
DX: I10 Essential (primary) hypertension (principal)
CPT/HCPCS: 93005; 93010; 99283-25

== ENCOUNTER 2023-05-16 12:39 | Inpatient (IN) | payer MEDICARE, OTHER ==
[2023-05-16] MEDS ORDERED: ACETAMINOPHEN 1000 MG/100 ML BAG IVPB ONE (16:14)
[2023-05-16] MEDS ORDERED: SODIUM CHLORIDE 0.9% 500 ML INFUS.BAG IV ONE (16:14)
[2023-05-16] MEDS ORDERED: ACETAMINOPHEN INJECTION 100 ML IVPB ONE (16:19)
[2023-05-16 16:39] LABS: HEMATOCRIT 26.5 % (32.4-45.2); HEMOGLOBIN 8.7 GM/dL (10.7-15.3); MCHC 32.7 g/dl (32.0-36.0); MEAN CELL VOLUME 88.7 fl (80-96); MEAN PLT VOLUME 6.6 fl (7.5-11.1); PLATELET COUNT 720 10^3/uL (134-434); RBC 2.98 M/mm3 (3.60-5.2); RDW 12.2 % (11.6-15.6); WHITE BLOOD COUNT 24.5 K/mm3 (4.0-10.0)
[2023-05-16 16:52] LABS: INR 1.24 (0.83-1.09); PROTHROMBIN TIME (PATIENT) 14.3 SEC (9.7-13.0)
[2023-05-16 16:54] LABS: ACTIVATED PTT 30.7 SECONDS (25.2-36.5)
[2023-05-16 17:14] LABS: POTASSIUM 4.5 mmol/L (3.5-5.1)
[2023-05-16 17:18] LABS: BLOOD UREA NITROGEN 17.6 mg/dL (7-18); CALCIUM 9.8 mg/dL (8.5-10.1)
[2023-05-16 17:24] LABS: BILIRUBIN,TOTAL 0.5 mg/dL (0.2-1); TOT PROT 7.7 g/dl (6.4-8.2)
[2023-05-16 17:56] LABS: ANISOCYTOSIS 0; MACROCYTOSIS 0
[2023-05-16 18:36] LABS: EPI CELLS 8 /uL (0-25.1); HYALINE CASTS 0 /uL (0-3.1); URINE APPEARANCE CLEAR; URINE BACTERIA 28 /uL (0-1359); URINE BILIRUBIN NEGATIVE (NEGATIVE); URINE COLOR YELLOW; URINE GLUCOSE (UA) NEGATIVE (NEGATIVE); URINE KETONE NEGATIVE (NEGATIVE); URINE LEUK ESTERASE NEGATIVE (NEGATIVE); URINE NITRITE NEGATIVE (NEGATIVE); URINE PROTEIN NEGATIVE (NEGATIVE); URINE RBC 29 /uL (0-23.9); URINE UROBILINOGEN 0.2 mg/dL (0.2-1.0); URINE WBC 40 /uL (0-25.8)
[2023-05-16 20:59] LABS: HEMATOCRIT 24.3 % (32.4-45.2); HEMOGLOBIN 7.9 GM/dL (10.7-15.3); MCH 28.8 pg (25.7-33.7); MCHC 32.5 g/dl (32.0-36.0); MEAN CELL VOLUME 88.5 fl (80-96); MEAN PLT VOLUME 6.6 fl (7.5-11.1); PLATELET COUNT 653 10^3/uL (134-434); RBC 2.75 M/mm3 (3.60-5.2); RDW 12.4 % (11.6-15.6); WHITE BLOOD COUNT 22.8 K/mm3 (4.0-10.0)
[2023-05-16 22:17] LABS: ANISOCYTOSIS 0; MACROCYTOSIS 0
[2023-05-17] MEDS ORDERED: SODIUM CHLORIDE 1,000 ML IV SCH ×2 (01:00)
[2023-05-17] MEDS ORDERED: CEFTRIAXONE 1 GM in DEXTROSE 5%-WATER - 50 ML IVPB ONE ×2 (02:12→13:30)
[2023-05-17] MEDS ORDERED: CEFTRIAXONE 1 GM/50 ML BAG ONE (02:59)
[2023-05-17] MEDS ORDERED: ENOXAPARIN NA (PORCINE) 40 MG/0.4 ML DISP.SYRIN SQ SCH (10:00)
[2023-05-17 10:04] LABS: HEMATOCRIT 23.2 % (32.4-45.2); HEMOGLOBIN 7.6 GM/dL (10.7-15.3); MCH 29.2 pg (25.7-33.7); MCHC 32.7 g/dl (32.0-36.0); MEAN CELL VOLUME 89.3 fl (80-96); MEAN PLT VOLUME 7.1 fl (7.5-11.1); PLATELET COUNT 642 10^3/uL (134-434); RBC 2.59 M/mm3 (3.60-5.2); RDW 11.9 % (11.6-15.6); WHITE BLOOD COUNT 25.2 K/mm3 (4.0-10.0)
[2023-05-17 10:45] LABS: POTASSIUM 4.3 mmol/L (3.5-5.1)
[2023-05-17 10:47] LABS: ALBUMIN 2.4 g/dl (3.4-5.0)
[2023-05-17 10:52] LABS: BILIRUBIN,TOTAL 0.3 mg/dL (0.2-1); CREATININE 0.8 mg/dL (0.55-1.3); TOT PROT 6.4 g/dl (6.4-8.2)
[2023-05-17 10:54] LABS: CALCIUM 8.2 mg/dL (8.5-10.1)
[2023-05-17] MEDS: PANTOPRAZOLE 40 MG TABLET PO SCH (11:05)
[2023-05-17] MEDS ORDERED: SODIUM CHLORIDE 500 ML IV STA (11:43)
[2023-05-17] MEDS ORDERED: SODIUM CHLORIDE 1,000 ML IV STA (11:51)
[2023-05-17] MEDS: LIDOCAINE 4% PATCH TP SCH (12:42)
[2023-05-17] MEDS: SODIUM CHLORIDE 1,000 ML IV SCH (16:27)
[2023-05-17] MEDS: ACETAMINOPHEN 325 MG TABLET (FP) PO PRN (20:50)
[2023-05-17] MEDS: PIPERACILLIN/TAZOB 4.5 GM 4.5 GM in DEXTROSE 5%-WATER 100 ML IVPB SCH (20:51)
[2023-05-17] MEDS ORDERED: PIPERACILLIN/TAZOB 4.5 GM 4.5 GM in DEXTROSE 5%-WATER 100 ML IVPB SCH (21:00)
[2023-05-17] MEDS: HEPARIN NA (PORCINE) 5,000 UNITS/ML 1ML VIAL SQ SCH (22:05)
[2023-05-17] MEDS: LIDOCAINE PATCH REMOVAL MC SCH (22:06)
[2023-05-18] MEDS: SODIUM CHLORIDE 1,000 ML IV SCH (00:37)
[2023-05-18] MEDS: PIPERACILLIN/TAZOB 4.5 GM 4.5 GM in DEXTROSE 5%-WATER 100 ML IVPB SCH ×4 (04:17→23:26)
[2023-05-18] MEDS: HEPARIN NA (PORCINE) 5,000 UNITS/ML 1ML VIAL SQ SCH (05:20)
[2023-05-18 09:29] LABS: HEMATOCRIT 22.1 % (32.4-45.2); HEMOGLOBIN 7.3 GM/dL (10.7-15.3); MCH 29.7 pg (25.7-33.7); MCHC 33.3 g/dl (32.0-36.0); MEAN CELL VOLUME 89.4 fl (80-96); PLATELET COUNT 649 10^3/uL (134-434); RBC 2.47 M/mm3 (3.60-5.2); RDW 12.2 % (11.6-15.6); WHITE BLOOD COUNT 26.2 K/mm3 (4.0-10.0)
[2023-05-18] MEDS ORDERED: CEFTRIAXONE 1 GM in DEXTROSE 5%-WATER - 50 ML IVPB SCH (10:00)
[2023-05-18] MEDS ORDERED: CEFTRIAXONE 2 GM in DEXTROSE 5%-WATER 50 ML IVPB SCH (10:00)
[2023-05-18] MEDS: AMINO ACIDS 4.25%/D5W 1,000 ML IV SCH (10:02)
[2023-05-18] MEDS: LIDOCAINE 4% PATCH TP SCH (10:04)
[2023-05-18] MEDS: ENOXAPARIN NA (PORCINE) 40 MG/0.4 ML DISP.SYRIN SQ SCH (10:05)
[2023-05-18] MEDS: PANTOPRAZOLE 40 MG TABLET PO SCH (10:05)
[2023-05-18] MEDS: ACETAMINOPHEN 325 MG TABLET (FP) PO PRN ×3 (10:06→23:27)
[2023-05-18 10:18] LABS: ALBUMIN 2.3 g/dl (3.4-5.0); CALCIUM 8.3 mg/dL (8.5-10.1)
[2023-05-18 10:20] LABS: MAGNESIUM 1.6 mg/dL (1.8-2.4)
[2023-05-18 10:21] LABS: CREATININE 0.9 mg/dL (0.55-1.3)
[2023-05-18 10:22] LABS: PHOSPHOROUS 3.2 mg/dL (2.5-4.9)
[2023-05-18 10:23] LABS: TOT PROT 6.2 g/dl (6.4-8.2)
[2023-05-18 10:24] LABS: BILIRUBIN,TOTAL 0.5 mg/dL (0.2-1)
[2023-05-18 11:03] LABS: ANISOCYTOSIS 1+; MACROCYTOSIS 0
[2023-05-18] MEDS ORDERED: MAGNESIUM SULF 50% (8.12 MEQ/2 ML-1 GM VIAL) IVPB ONE (16:58)
[2023-05-18] MEDS: LIDOCAINE PATCH REMOVAL MC SCH (22:37)
[2023-05-19] MEDS: ACETAMINOPHEN 325 MG TABLET (FP) PO PRN (06:59)
[2023-05-19] MEDS: AMINO ACIDS 4.25%/D5W 1,000 ML IV SCH (09:14)
[2023-05-19] MEDS: LIDOCAINE 4% PATCH TP SCH (09:16)
[2023-05-19] MEDS: PANTOPRAZOLE 40 MG TABLET PO SCH (09:17)
[2023-05-19] MEDS: ENOXAPARIN NA (PORCINE) 40 MG/0.4 ML DISP.SYRIN SQ SCH (09:17)
[2023-05-19] MEDS: PIPERACILLIN/TAZOB 4.5 GM 4.5 GM in DEXTROSE 5%-WATER 100 ML IVPB SCH ×2 (09:17→17:42)
[2023-05-19 09:39] LABS: HEMATOCRIT 21.6 % (32.4-45.2); HEMOGLOBIN 7.3 GM/dL (10.7-15.3); MCH 29.7 pg (25.7-33.7); MCHC 33.6 g/dl (32.0-36.0); MEAN CELL VOLUME 88.3 fl (80-96); PLATELET COUNT 660 10^3/uL (134-434); RBC 2.44 M/mm3 (3.60-5.2); RDW 12.1 % (11.6-15.6)
[2023-05-19 10:18] LABS: POTASSIUM 3.8 mmol/L (3.5-5.1)
[2023-05-19 10:25] LABS: BLOOD UREA NITROGEN 9.6 mg/dL (7-18)
[2023-05-19 10:26] LABS: CREATININE 0.9 mg/dL (0.55-1.3); MAGNESIUM 1.7 mg/dL (1.8-2.4)
[2023-05-19 10:47] LABS: ANISOCYTOSIS 2+; MACROCYTOSIS 0
[2023-05-19] MEDS: LIDOCAINE PATCH REMOVAL MC SCH (22:23)
[2023-05-20] MEDS: PIPERACILLIN/TAZOB 4.5 GM 4.5 GM in DEXTROSE 5%-WATER 100 ML IVPB SCH ×3 (01:14→18:15)
[2023-05-20] MEDS: ACETAMINOPHEN 325 MG TABLET (FP) PO PRN (03:02)
[2023-05-20] MEDS ORDERED: PEG 3350/NA SULF BICARB CL/KCL 4000 ML SOLN.RECON PO ONE (08:00)
[2023-05-20] MEDS: AMINO ACIDS 4.25%/D5W 1,000 ML IV SCH (09:29)
[2023-05-20] MEDS: PANTOPRAZOLE 40 MG TABLET PO SCH (09:42)
[2023-05-20] MEDS: LIDOCAINE 4% PATCH TP SCH (09:43)
[2023-05-20] MEDS ORDERED: POLYETHYLENE GLYCOL 3350 255 GM BTL PO ONE (10:00)
[2023-05-20 10:09] LABS: HEMATOCRIT 21.8 % (32.4-45.2); HEMOGLOBIN 7.1 GM/dL (10.7-15.3); MCH 28.9 pg (25.7-33.7); MCHC 32.4 g/dl (32.0-36.0); MEAN CELL VOLUME 89.2 fl (80-96); MEAN PLT VOLUME 6.6 fl (7.5-11.1); PLATELET COUNT 701 10^3/uL (134-434); RBC 2.45 M/mm3 (3.60-5.2); RDW 12.3 % (11.6-15.6); WHITE BLOOD COUNT 21.7 K/mm3 (4.0-10.0)
[2023-05-20 10:30] LABS: POTASSIUM 3.6 mmol/L (3.5-5.1)
[2023-05-20 10:38] LABS: ALBUMIN 2.3 g/dl (3.4-5.0); MAGNESIUM 1.9 mg/dL (1.8-2.4)
[2023-05-20 10:41] LABS: CREATININE 0.8 mg/dL (0.55-1.3); PHOSPHOROUS 3.3 mg/dL (2.5-4.9)
[2023-05-20 10:43] LABS: BILIRUBIN,TOTAL 0.4 mg/dL (0.2-1); TOT PROT 6.3 g/dl (6.4-8.2)
[2023-05-20 11:41] LABS: ANISOCYTOSIS 0; HELMET CELLS 0; HOWELL-JOLLY BODIES 0; MACROCYTOSIS 0; OVALOCYTE 0; ROULEAU 0; SICKELED CELLS 0; TARGET CELLS 0; TEAR DROP CELLS 0; TOXIC GRANULATION 0
[2023-05-20] MEDS: ENOXAPARIN NA (PORCINE) 40 MG/0.4 ML DISP.SYRIN SQ SCH (12:33)
[2023-05-20] MEDS ORDERED: BISACODYL 5 MG TABLET.DR (FP) PO ONE (12:45)
[2023-05-20] MEDS: NEOMYCIN SO4 500 MG TABLET PO SCH ×3 (13:08→23:01)
[2023-05-20] MEDS: metroNIDAZOLE 250 MG TABLET PO SCH ×3 (13:08→23:01)
[2023-05-20] MEDS ORDERED: ONDANSETRON 4 MG/2 ML VIAL IVPUSH PRN (16:16)
[2023-05-20] MEDS: ACETAMINOPHEN 1000 MG/100 ML BAG IVPB PRN (17:43)
[2023-05-20] MEDS: LIDOCAINE PATCH REMOVAL MC SCH (23:02)
[2023-05-21] MEDS: PIPERACILLIN/TAZOB 4.5 GM 4.5 GM in DEXTROSE 5%-WATER 100 ML IVPB SCH ×2 (01:06→09:09)
[2023-05-21] MEDS: ACETAMINOPHEN 1000 MG/100 ML BAG IVPB PRN (02:34)
[2023-05-21] MEDS: PANTOPRAZOLE 40 MG TABLET PO SCH (09:10)
[2023-05-21] MEDS: LIDOCAINE 4% PATCH TP SCH (09:10)
[2023-05-21] MEDS: AMINO ACIDS 4.25%/D5W 1,000 ML IV SCH (09:10)
[2023-05-21 09:18] LABS: HEMATOCRIT 23.8 % (32.4-45.2); HEMOGLOBIN 7.6 GM/dL (10.7-15.3); MCH 28.6 pg (25.7-33.7); MCHC 31.9 g/dl (32.0-36.0); MEAN CELL VOLUME 89.7 fl (80-96); PLATELET COUNT 912 10^3/uL (134-434); RBC 2.65 M/mm3 (3.60-5.2); RDW 12.4 % (11.6-15.6); WHITE BLOOD COUNT 21.3 K/mm3 (4.0-10.0)
[2023-05-21 09:29] LABS: INR 1.34 (0.83-1.09); PROTHROMBIN TIME (PATIENT) 15.5 SEC (9.7-13.0)
[2023-05-21 09:53] LABS: POTASSIUM 3.5 mmol/L (3.5-5.1)
[2023-05-21 10:06] LABS: PHOSPHOROUS 3.1 mg/dL (2.5-4.9)
[2023-05-21 10:07] LABS: ALBUMIN 2.6 g/dl (3.4-5.0); BILIRUBIN,TOTAL 0.3 mg/dL (0.2-1); TOT PROT 7.2 g/dl (6.4-8.2)
[2023-05-21 10:08] LABS: BLOOD UREA NITROGEN 10.6 mg/dL (7-18); CALCIUM 9.3 mg/dL (8.5-10.1); MAGNESIUM 1.8 mg/dL (1.8-2.4)
[2023-05-21 10:10] LABS: CREATININE 0.9 mg/dL (0.55-1.3)
[2023-05-21 10:34] LABS: ANISOCYTOSIS 1+; MACROCYTOSIS 0
[2023-05-21] MEDS ORDERED: INDOCYANINE GREEN 25 MG/10 ML VIAL IVPUSH ONE ×2 (13:15→18:08)
[2023-05-21] MEDS ORDERED: MIDAZOLAM HCL 2 MG/2 ML SINGLE DOSE VIAL ONE ×2 (13:34→17:02)
[2023-05-21] MEDS ORDERED: PROPOFOL 20 ML ONE (13:35)
[2023-05-21] MEDS ORDERED: SUGAMMADEX SODIUM 200 MG/2 ML VIAL ONE ×2 (13:36→19:21)
[2023-05-21] MEDS ORDERED: ROCURONIUM BROMIDE 50 MG/5 ML SYRINGE ONE ×2 (13:36→16:14)
[2023-05-21] MEDS ORDERED: cefOXitin SODIUM 2 GM VIAL (RESTRICTED TO ID) IVPB ONE ×2 (14:22→14:28)
[2023-05-21] MEDS ORDERED: DEXAMETHASONE SOD PHOSPHATE 4 MG/1 ML VIAL ONE (14:27)
[2023-05-21] MEDS ORDERED: ONDANSETRON 4 MG/2 ML VIAL ONE ×2 (14:27→19:46)
[2023-05-21] MEDS ORDERED: BUPIVACAINE HCL/PF 0.25% (2.5MG/ML) 10 ML VIAL IJ ONE (14:56)
[2023-05-21] MEDS ORDERED: ACETAMINOPHEN INJECTION 100 ML IVPB ONE (19:41)
[2023-05-21] MEDS ORDERED: BACITRACIN ZINC 15 GM TUBE TOPICAL OINTMENT TP ONE (19:45)
[2023-05-21] MEDS ORDERED: BACITRACIN ZINC 15 GM TUBE TOPICAL OINTMENT ONE (19:50)
[2023-05-21] MEDS ORDERED: PROMETHAZINE HCL 25 MG/1 ML VIAL IVPB PRN (20:22)
[2023-05-21] MEDS ORDERED: ONDANSETRON 4 MG/2 ML VIAL IVPUSH PRN ×2 (20:22→20:25)
[2023-05-21] MEDS ORDERED: SODIUM CHLORIDE 1,000 ML IV SCH (20:25)
[2023-05-21] MEDS ORDERED: LACTATED RINGERS SOLUTION 1,000 ML IV SCH (20:30)
[2023-05-21 20:58] LABS: BASO % 0.1 % (0-2.0); EOS % 0.1 % (0-4.5); HEMATOCRIT 29.4 % (32.4-45.2); HEMOGLOBIN 9.5 GM/dL (10.7-15.3); MCH 28.8 pg (25.7-33.7); MCHC 32.3 g/dl (32.0-36.0); MEAN CELL VOLUME 89.2 fl (80-96); MEAN PLT VOLUME 6.8 fl (7.5-11.1); MONO % 7.7 % (3.8-10.2); NEUT % 89.1 % (42.8-82.8); PLATELET COUNT 786 10^3/uL (134-434); RDW 13.2 % (11.6-15.6); WHITE BLOOD COUNT 20.2 K/mm3 (4.0-10.0)
[2023-05-21 21:23] LABS: POTASSIUM 3.7 mmol/L (3.5-5.1)
[2023-05-21 21:25] LABS: BLOOD UREA NITROGEN 12.6 mg/dL (7-18); CALCIUM 8.5 mg/dL (8.5-10.1)
[2023-05-21 21:29] LABS: CREATININE 1.3 mg/dL (0.55-1.3)
[2023-05-21] MEDS ORDERED: LACTATED RINGERS SOLUTION 1,000 ML/1,000 ML INFUS.BAG IV ONE (21:37)
[2023-05-21 21:38] LABS: ANISOCYTOSIS 1+; MACROCYTOSIS 0; TEAR DROP CELLS 1+
[2023-05-21] MEDS ORDERED: LIDOCAINE PATCH REMOVAL MC SCH ×2 (22:00)
[2023-05-22] MEDS: HYDROmorphone HCl 2 MG/ML VIAL IVPUSH PRN ×3 (02:00→22:01)
[2023-05-22] MEDS ORDERED: PIPERACILLIN/TAZOB 4.5 GM 4.5 GM in DEXTROSE 5%-WATER 100 ML IVPB SCH (02:00)
[2023-05-22] MEDS ORDERED: ACETAMINOPHEN 1000 MG/100 ML BAG IVPB PRN (03:00)
[2023-05-22] MEDS ORDERED: LACTATED RINGERS SOLUTION 1,000 ML/1,000 ML INFUS.BAG IV ONE (03:39)
[2023-05-22] MEDS ORDERED: LACTATED RINGERS SOLUTION 1,000 ML/1,000 ML INFUS.BAG IV SCH ×2 (03:45→09:47)
[2023-05-22] MEDS: HEPARIN NA (PORCINE) 5,000 UNITS/ML 1ML VIAL SQ SCH ×3 (06:33→22:01)
[2023-05-22] MEDS ORDERED: AMINO ACIDS 4.25%/D5W 1,000 ML IV SCH (08:15)
[2023-05-22 08:28] LABS: POTASSIUM 4.1 mmol/L (3.5-5.1)
[2023-05-22 08:32] LABS: HEMATOCRIT 29.8 % (32.4-45.2); HEMOGLOBIN 9.9 GM/dL (10.7-15.3); MCH 28.5 pg (25.7-33.7); MCHC 33.2 g/dl (32.0-36.0); MEAN CELL VOLUME 85.8 fl (80-96); MEAN PLT VOLUME 7.2 fl (7.5-11.1); PLATELET COUNT 750 10^3/uL (134-434); RBC 3.48 M/mm3 (3.60-5.2); RDW 13.8 % (11.6-15.6); WHITE BLOOD COUNT 20.2 K/mm3 (4.0-10.0)
[2023-05-22 08:33] LABS: CALCIUM 7.6 mg/dL (8.5-10.1)
[2023-05-22 08:34] LABS: MAGNESIUM 1.5 mg/dL (1.8-2.4)
[2023-05-22 08:36] LABS: CREATININE 1.2 mg/dL (0.55-1.3)
[2023-05-22 08:48] LABS: ALBUMIN 1.7 g/dl (3.4-5.0); TOT PROT 5.1 g/dl (6.4-8.2)
[2023-05-22] MEDS: MUPIROCIN 2% TOPICAL OINTMENT FOR DECOLONIZATION NS SCH ×2 (09:07→22:03)
[2023-05-22] MEDS ORDERED: MAGNESIUM SULF 50% (8.12 MEQ/2 ML-1 GM VIAL) IVPB ONE (09:09)
[2023-05-22 09:17] LABS: ANISOCYTOSIS 0; MACROCYTOSIS 0
[2023-05-22] MEDS ORDERED: HYDROmorphone HCl 2 MG/ML VIAL IVPUSH PRN (09:34)
[2023-05-22] MEDS ORDERED: SODIUM CHLORIDE 1,000 ML IV STA (09:47)
[2023-05-22] MEDS ORDERED: LIDOCAINE 4% PATCH TP SCH (10:00)
[2023-05-22] MEDS ORDERED: PANTOPRAZOLE 40 MG TABLET PO SCH (10:00)
[2023-05-22] MEDS ORDERED: ENOXAPARIN NA (PORCINE) 40 MG/0.4 ML DISP.SYRIN SQ SCH (10:00)
[2023-05-22] MEDS ORDERED: LACTATED RINGERS SOLUTION 1,000 ML/1,000 ML INFUS.BAG IV STA (11:33)
[2023-05-22] MEDS: PANTOPRAZOLE SODIUM 40 MG VIAL IVPUSH SCH (15:10)
[2023-05-22] MEDS: ACETAMINOPHEN 1000 MG/100 ML BAG IVPB PRN (15:10)
[2023-05-22] MEDS ORDERED: CHLORHEXIDINE GLUCONATE 4% CLEANSER FOR DECOLONIZATION TP SCH (22:00)
[2023-05-22] MEDS: LACTATED RINGERS SOLUTION 1,000 ML/1,000 ML INFUS.BAG IV SCH (22:03)
[2023-05-23] MEDS: ACETAMINOPHEN 1000 MG/100 ML BAG IVPB PRN (02:35)
[2023-05-23] MEDS: LACTATED RINGERS SOLUTION 1,000 ML/1,000 ML INFUS.BAG IV SCH (02:37)
[2023-05-23] MEDS: HEPARIN NA (PORCINE) 5,000 UNITS/ML 1ML VIAL SQ SCH (06:52)
[2023-05-23 07:22] LABS: HEMATOCRIT 23.3 % (32.4-45.2); HEMOGLOBIN 7.5 GM/dL (10.7-15.3); MCH 27.8 pg (25.7-33.7); MCHC 32.1 g/dl (32.0-36.0); MEAN CELL VOLUME 86.6 fl (80-96); MEAN PLT VOLUME 7.1 fl (7.5-11.1); PLATELET COUNT 729 10^3/uL (134-434); RBC 2.69 M/mm3 (3.60-5.2); RDW 14.1 % (11.6-15.6); WHITE BLOOD COUNT 22.4 K/mm3 (4.0-10.0)
[2023-05-23 07:52] LABS: POTASSIUM 3.9 mmol/L (3.5-5.1)
[2023-05-23 08:06] LABS: CALCIUM 7.6 mg/dL (8.5-10.1)
[2023-05-23 08:07] LABS: ALBUMIN 1.6 g/dl (3.4-5.0); BLOOD UREA NITROGEN 10.9 mg/dL (7-18); MAGNESIUM 2.1 mg/dL (1.8-2.4)
[2023-05-23 08:10] LABS: CREATININE 0.8 mg/dL (0.55-1.3); PHOSPHOROUS 2.2 mg/dL (2.5-4.9)
[2023-05-23 08:12] LABS: BILIRUBIN,TOTAL 0.5 mg/dL (0.2-1); TOT PROT 4.7 g/dl (6.4-8.2)
[2023-05-23] MEDS: HYDROmorphone HCl 2 MG/ML VIAL IVPUSH PRN (09:34)
[2023-05-23] MEDS: MUPIROCIN 2% TOPICAL OINTMENT FOR DECOLONIZATION NS SCH (09:35)
[2023-05-23] MEDS: PANTOPRAZOLE SODIUM 40 MG VIAL IVPUSH SCH (09:35)
[2023-05-23 10:18] LABS: HEMATOCRIT 21.8 % (32.4-45.2); HEMOGLOBIN 7.3 GM/dL (10.7-15.3); MCH 28.8 pg (25.7-33.7); MCHC 33.5 g/dl (32.0-36.0); MEAN CELL VOLUME 85.9 fl (80-96); MEAN PLT VOLUME 6.8 fl (7.5-11.1); PLATELET COUNT 693 10^3/uL (134-434); RBC 2.54 M/mm3 (3.60-5.2); RDW 14.2 % (11.6-15.6); WHITE BLOOD COUNT 22.9 K/mm3 (4.0-10.0)
[2023-05-23] MEDS ORDERED: POTASSIUM PHOSPHATE 30 MM in SODIUM CHLORIDE 250 ML IVPB ONE (10:30)
[2023-05-23] MEDS ORDERED: DEXTROSE 5%-LACTATED RINGERS 1,000 ML IV SCH (13:30)
[2023-05-23] MEDS ORDERED: POTASSIUM PHOSPHATE 30 MM in SODIUM CHLORIDE 500 ML IVPB ONE (15:30)
[2023-05-23] MEDS: HYDROmorphone HCl 2 MG/ML VIAL IVPB PRN ×2 (15:32→20:03)
[2023-05-23] MEDS: PIPERACILLIN/TAZOB 4.5 GM 4.5 GM in DEXTROSE 5%-WATER 100 ML IVPB SCH (17:49)
[2023-05-23] MEDS ORDERED: MUPIROCIN 2% TOPICAL OINTMENT FOR DECOLONIZATION NS SCH (22:00)
[2023-05-23] MEDS ORDERED: CHLORHEXIDINE GLUCONATE 4% CLEANSER FOR DECOLONIZATION TP SCH (22:00)
[2023-05-24] MEDS: PIPERACILLIN/TAZOB 4.5 GM 4.5 GM in DEXTROSE 5%-WATER 100 ML IVPB SCH ×3 (01:15→18:48)
[2023-05-24] MEDS: HYDROmorphone HCl 2 MG/ML VIAL IVPB PRN ×2 (01:29→10:51)
[2023-05-24 09:04] LABS: HEMATOCRIT 22.4 % (32.4-45.2); HEMOGLOBIN 7.3 GM/dL (10.7-15.3); MCH 29.1 pg (25.7-33.7); MCHC 32.8 g/dl (32.0-36.0); MEAN CELL VOLUME 88.7 fl (80-96); MEAN PLT VOLUME 6.7 fl (7.5-11.1); PLATELET COUNT 816 10^3/uL (134-434); RBC 2.52 M/mm3 (3.60-5.2); RDW 13.8 % (11.6-15.6); WHITE BLOOD COUNT 24.1 K/mm3 (4.0-10.0)
[2023-05-24 09:12] LABS: POTASSIUM 4.2 mmol/L (3.5-5.1)
[2023-05-24 09:26] LABS: ANISOCYTOSIS 0; CALCIUM 7.6 mg/dL (8.5-10.1); MACROCYTOSIS 0
[2023-05-24 09:29] LABS: ALBUMIN 1.6 g/dl (3.4-5.0); MAGNESIUM 1.8 mg/dL (1.8-2.4)
[2023-05-24 09:30] LABS: CREATININE 0.8 mg/dL (0.55-1.3); PHOSPHOROUS 3.5 mg/dL (2.5-4.9)
[2023-05-24 09:31] LABS: BILIRUBIN,TOTAL 0.3 mg/dL (0.2-1); TOT PROT 4.9 g/dl (6.4-8.2)
[2023-05-24] MEDS ORDERED: PANTOPRAZOLE SODIUM 40 MG VIAL IVPUSH SCH (10:00)
[2023-05-24] MEDS ORDERED: DEXTROSE 5%-LACTATED RINGERS 1,000 ML IV SCH (10:26)
[2023-05-24] MEDS: ENOXAPARIN NA (PORCINE) 40 MG/0.4 ML DISP.SYRIN SQ SCH (12:55)
[2023-05-24] MEDS ORDERED: MAGNESIUM 1GM/D5W - 1 GM/100 ML IVPB IVPB ONE (13:30)
[2023-05-24] MEDS: ACETAMINOPHEN 1000 MG/100 ML BAG IVPB SCH ×2 (13:47→20:31)
[2023-05-25] MEDS: PIPERACILLIN/TAZOB 4.5 GM 4.5 GM in DEXTROSE 5%-WATER 100 ML IVPB SCH ×3 (02:47→18:28)
[2023-05-25] MEDS: HYDROmorphone HCl 2 MG/ML VIAL IVPB PRN (02:48)
[2023-05-25] MEDS: ONDANSETRON 4 MG/2 ML VIAL IVPUSH PRN ×2 (02:48→10:02)
[2023-05-25] MEDS: PANTOPRAZOLE SODIUM 40 MG VIAL IVPUSH SCH ×3 (04:55→22:59)
[2023-05-25] MEDS: ACETAMINOPHEN 1000 MG/100 ML BAG IVPB SCH ×2 (05:54→13:47)
[2023-05-25 09:13] LABS: HEMATOCRIT 27.2 % (32.4-45.2); HEMOGLOBIN 8.8 GM/dL (10.7-15.3); MCH 28.6 pg (25.7-33.7); MCHC 32.4 g/dl (32.0-36.0); MEAN CELL VOLUME 88.2 fl (80-96); MEAN PLT VOLUME 6.6 fl (7.5-11.1); RBC 3.09 M/mm3 (3.60-5.2); RDW 14.1 % (11.6-15.6); WHITE BLOOD COUNT 19.8 K/mm3 (4.0-10.0)
[2023-05-25 09:14] LABS: PLATELET COUNT 1104 10^3/uL (134-434)
[2023-05-25] MEDS ORDERED: SODIUM CHLORIDE 0.45% 1,000 ML IV SCH (09:30)
[2023-05-25 09:34] LABS: POTASSIUM 4.5 mmol/L (3.5-5.1)
[2023-05-25 09:35] LABS: CALCIUM 8.2 mg/dL (8.5-10.1)
[2023-05-25 09:39] LABS: CREATININE 0.8 mg/dL (0.55-1.3)
[2023-05-25] MEDS: ENOXAPARIN NA (PORCINE) 40 MG/0.4 ML DISP.SYRIN SQ SCH (10:02)
[2023-05-25] MEDS: AMINO ACIDS 4.25%/D5W 1,000 ML IV SCH (10:02)
[2023-05-25 10:54] LABS: ANISOCYTOSIS 0; HELMET CELLS 0; HOWELL-JOLLY BODIES 0; MACROCYTOSIS 0; OVALOCYTE 0; ROULEAU 0; SICKELED CELLS 0; TARGET CELLS 0; TEAR DROP CELLS 0; TOXIC GRANULATION 0
[2023-05-25] MEDS ORDERED: HYDROmorphone HCl 2 MG/ML VIAL IVPB PRN ×2 (11:42→11:57)
[2023-05-25] MEDS ORDERED: KETOROLAC TROMETHAMINE 15 MG/ML VIAL IVPUSH PRN (11:54)
[2023-05-25] MEDS ORDERED: HYDROmorphone HCl 2 MG/ML VIAL IVPB SCH ×2 (12:00→15:00)
[2023-05-25] MEDS ORDERED: TRIMETHOBENZAMIDE HCL 200MG/2ML INJ IM ONE (13:00)
[2023-05-25] MEDS ORDERED: ONDANSETRON 4 MG/2 ML VIAL IVPUSH ONE (19:39)
[2023-05-25] MEDS ORDERED: ONDANSETRON *ODT* 4 MG TABLET SL ONE (19:59)
[2023-05-25] MEDS ORDERED: KETOROLAC TROMETHAMINE 15 MG/ML VIAL IM ONE (22:10)
[2023-05-26] MEDS: PIPERACILLIN/TAZOB 4.5 GM 4.5 GM in DEXTROSE 5%-WATER 100 ML IVPB SCH ×3 (01:06→17:51)
[2023-05-26] MEDS: ENOXAPARIN NA (PORCINE) 40 MG/0.4 ML DISP.SYRIN SQ SCH (09:48)
[2023-05-26] MEDS: PANTOPRAZOLE SODIUM 40 MG VIAL IVPUSH SCH ×2 (09:48→21:38)
[2023-05-26] MEDS: AMINO ACIDS 4.25%/D5W 1,000 ML IV SCH (11:04)
[2023-05-26 12:51] LABS: BASO % 0.3 % (0-2.0); EOS % 1.3 % (0-4.5); HEMATOCRIT 25.8 % (32.4-45.2); HEMOGLOBIN 8.4 GM/dL (10.7-15.3); LYMPH % 10.2 % (8-40); MCH 28.7 pg (25.7-33.7); MCHC 32.6 g/dl (32.0-36.0); MEAN PLT VOLUME 6.7 fl (7.5-11.1); MONO % 7.6 % (3.8-10.2); NEUT % 80.6 % (42.8-82.8); POTASSIUM 3.7 mmol/L (3.5-5.1); RBC 2.93 M/mm3 (3.60-5.2); WHITE BLOOD COUNT 18.1 K/mm3 (4.0-10.0)
[2023-05-26 12:53] LABS: CALCIUM 8.4 mg/dL (8.5-10.1)
[2023-05-26 12:54] LABS: ALBUMIN 1.7 g/dl (3.4-5.0); BLOOD UREA NITROGEN 15.4 mg/dL (7-18); PLATELET COUNT 1178 10^3/uL (134-434)
[2023-05-26 12:57] LABS: CREATININE 0.8 mg/dL (0.55-1.3)
[2023-05-26 12:59] LABS: BILIRUBIN,TOTAL 0.4 mg/dL (0.2-1); TOT PROT 5.2 g/dl (6.4-8.2)
[2023-05-27] MEDS: PIPERACILLIN/TAZOB 4.5 GM 4.5 GM in DEXTROSE 5%-WATER 100 ML IVPB SCH ×3 (01:32→17:18)
[2023-05-27] MEDS: AMINO ACIDS 4.25%/D5W 1,000 ML IV SCH (08:34)
[2023-05-27 10:31] LABS: BASO % 0.5 % (0-2.0); EOS % 1.4 % (0-4.5); HEMATOCRIT 24.5 % (32.4-45.2); LYMPH % 10.2 % (8-40); MCHC 32.6 g/dl (32.0-36.0); MEAN CELL VOLUME 88.9 fl (80-96); MEAN PLT VOLUME 6.6 fl (7.5-11.1); MONO % 8.2 % (3.8-10.2); NEUT % 79.7 % (42.8-82.8); RBC 2.76 M/mm3 (3.60-5.2); RDW 14.1 % (11.6-15.6); WHITE BLOOD COUNT 17.8 K/mm3 (4.0-10.0)
[2023-05-27 10:34] LABS: PLATELET COUNT 1168 10^3/uL (134-434)
[2023-05-27] MEDS: ENOXAPARIN NA (PORCINE) 40 MG/0.4 ML DISP.SYRIN SQ SCH (10:57)
[2023-05-27] MEDS: PANTOPRAZOLE SODIUM 40 MG VIAL IVPUSH SCH (10:57)
[2023-05-27 11:23] LABS: POTASSIUM 4.1 mmol/L (3.5-5.1)
[2023-05-27 11:26] LABS: ALBUMIN 1.7 g/dl (3.4-5.0); BLOOD UREA NITROGEN 12.4 mg/dL (7-18); CALCIUM 7.7 mg/dL (8.5-10.1); MAGNESIUM 1.9 mg/dL (1.8-2.4)
[2023-05-27 11:31] LABS: BILIRUBIN,TOTAL 0.3 mg/dL (0.2-1); TOT PROT 5.4 g/dl (6.4-8.2)
[2023-05-27 11:51] LABS: PHOSPHOROUS 2.9 mg/dL (2.5-4.9)
[2023-05-27] MEDS ORDERED: ONDANSETRON 4 MG TABLET PO PRN (17:23)
[2023-05-27] MEDS ORDERED: IBUPROFEN 400 MG TABLET (FP) PO PRN (17:24)
[2023-05-27] MEDS: PANTOPRAZOLE 40 MG TABLET PO SCH (23:00)
[2023-05-28] MEDS: PIPERACILLIN/TAZOB 4.5 GM 4.5 GM in DEXTROSE 5%-WATER 100 ML IVPB SCH ×3 (01:19→17:42)
[2023-05-28] MEDS: ACETAMINOPHEN 325 MG TABLET (FP) PO PRN ×3 (06:23→19:52)
[2023-05-28 09:03] LABS: HEMATOCRIT 24.8 % (32.4-45.2); HEMOGLOBIN 8.1 GM/dL (10.7-15.3); MCH 28.9 pg (25.7-33.7); MCHC 32.6 g/dl (32.0-36.0); MEAN CELL VOLUME 88.7 fl (80-96); MEAN PLT VOLUME 6.7 fl (7.5-11.1); RDW 13.6 % (11.6-15.6); WHITE BLOOD COUNT 19.9 K/mm3 (4.0-10.0)
[2023-05-28 09:13] LABS: PLATELET COUNT 1170 10^3/uL (134-434)
[2023-05-28 09:47] LABS: POTASSIUM 4.8 mmol/L (3.5-5.1)
[2023-05-28 10:05] LABS: BLOOD UREA NITROGEN 9.8 mg/dL (7-18); MAGNESIUM 1.7 mg/dL (1.8-2.4)
[2023-05-28 10:06] LABS: ALBUMIN 1.8 g/dl (3.4-5.0)
[2023-05-28 10:09] LABS: CREATININE 0.9 mg/dL (0.55-1.3); PHOSPHOROUS 3.5 mg/dL (2.5-4.9)
[2023-05-28 10:10] LABS: BILIRUBIN,TOTAL 0.3 mg/dL (0.2-1); TOT PROT 5.5 g/dl (6.4-8.2)
[2023-05-28 10:28] LABS: ANISOCYTOSIS 2+; MACROCYTOSIS 0
[2023-05-28] MEDS: ENOXAPARIN NA (PORCINE) 40 MG/0.4 ML DISP.SYRIN SQ SCH (10:37)
[2023-05-28] MEDS: PANTOPRAZOLE 40 MG TABLET PO SCH (10:37)
[2023-05-28] MEDS: HYDROCHLOROTHIAZIDE 25 MG TABLET (FP) PO SCH (10:37)
[2023-05-28] MEDS: LISINOPRIL 20 MG TABLET PO SCH (10:37)
[2023-05-28] MEDS: SIMETHICONE 80 MG TAB.CHEW (FP) PO PRN ×2 (13:51→18:18)
[2023-05-28] MEDS ORDERED: MAG HYDROX/AL HYDROX/SIMETH 30 ML UNIT-DOSE CUP PO PRN (15:33)
[2023-05-28] MEDS: TRIMETHOBENZAMIDE HCL 200MG/2ML INJ IM PRN (20:02)
[2023-05-28] MEDS ORDERED: FAMOTIDINE 20 MG TABLET PO SCH (22:00)
[2023-05-29] MEDS: PIPERACILLIN/TAZOB 4.5 GM 4.5 GM in DEXTROSE 5%-WATER 100 ML IVPB SCH ×3 (02:20→18:35)
[2023-05-29] MEDS: SIMETHICONE 80 MG TAB.CHEW (FP) PO PRN (02:30)
[2023-05-29] MEDS ORDERED: ASPIRIN 81 MG CHEWABLE TABLETS PO SCH (09:00)
[2023-05-29 09:09] LABS: HEMATOCRIT 25.6 % (32.4-45.2); HEMOGLOBIN 8.3 GM/dL (10.7-15.3); MCH 28.5 pg (25.7-33.7); MCHC 32.4 g/dl (32.0-36.0); MEAN CELL VOLUME 87.8 fl (80-96); MEAN PLT VOLUME 6.6 fl (7.5-11.1); RBC 2.92 M/mm3 (3.60-5.2); RDW 13.8 % (11.6-15.6); WHITE BLOOD COUNT 21.4 K/mm3 (4.0-10.0)
[2023-05-29 09:11] LABS: PLATELET COUNT 1260 10^3/uL (134-434)
[2023-05-29] MEDS: LISINOPRIL 20 MG TABLET PO SCH (09:29)
[2023-05-29] MEDS: PANTOPRAZOLE SODIUM 40 MG VIAL IVPUSH SCH (09:29)
[2023-05-29] MEDS: ASPIRIN 81 MG CHEWABLE TABLETS PO SCH (09:29)
[2023-05-29] MEDS: HYDROCHLOROTHIAZIDE 25 MG TABLET (FP) PO SCH (09:29)
[2023-05-29] MEDS: ENOXAPARIN NA (PORCINE) 40 MG/0.4 ML DISP.SYRIN SQ SCH (09:29)
[2023-05-29 09:31] LABS: POTASSIUM 4.5 mmol/L (3.5-5.1)
[2023-05-29 09:37] LABS: CREATININE 0.8 mg/dL (0.55-1.3)
[2023-05-29 09:42] LABS: BLOOD UREA NITROGEN 10.1 mg/dL (7-18)
[2023-05-29] MEDS ORDERED: SODIUM CHLORIDE 0.9% 500 ML INFUS.BAG IV ONE (09:57)
[2023-05-29] MEDS ORDERED: LOPERAMIDE HCL 2 MG CAPSULE PO SCH (10:00)
[2023-05-29 10:12] LABS: ANISOCYTOSIS 0; MACROCYTOSIS 0
[2023-05-29] MEDS: LOPERAMIDE HCL 2 MG CAPSULE PO SCH ×2 (12:42→20:55)
[2023-05-29] MEDS: PSYLLIUM 5.85 GM PACKET PO SCH ×2 (12:42→21:35)
[2023-05-29] MEDS ORDERED: FENTANYL CITRATE/PF 50 MCG/ML VIAL ONE (14:37)
[2023-05-29] MEDS ORDERED: MIDAZOLAM HCL 2 MG/2 ML SINGLE DOSE VIAL ONE (14:37)
[2023-05-29] MEDS ORDERED: ONDANSETRON 4 MG/2 ML VIAL ONE (15:21)
[2023-05-29] MEDS ORDERED: ONDANSETRON 4 MG/2 ML VIAL IVPUSH ONE (15:30)
[2023-05-29] MEDS: MIDAZOLAM HCL 2 MG/2 ML SINGLE DOSE VIAL IVPUSH SCH ×2 (15:30→16:05)
[2023-05-29] MEDS: FENTANYL CITRATE/PF 50 MCG/ML VIAL IVPUSH SCH ×2 (15:30→16:05)
[2023-05-29] MEDS ORDERED: MAGNESIUM SULFATE IN WATER 2 GM/50 ML IVPB IVPB ONE (15:30)
[2023-05-29] MEDS ORDERED: SODIUM CHLORIDE 500 ML IV ONE (15:30)
[2023-05-30] MEDS: PIPERACILLIN/TAZOB 4.5 GM 4.5 GM in DEXTROSE 5%-WATER 100 ML IVPB SCH ×2 (02:41→09:55)
[2023-05-30] MEDS: LOPERAMIDE HCL 2 MG CAPSULE PO SCH ×2 (05:25→14:12)
[2023-05-30] MEDS ORDERED: oxyCODONE HCL 5 MG TABLET PO PRN (08:30)
[2023-05-30 09:17] LABS: HEMATOCRIT 25.3 % (32.4-45.2); HEMOGLOBIN 8.3 GM/dL (10.7-15.3); MCH 28.8 pg (25.7-33.7); MCHC 32.7 g/dl (32.0-36.0); MEAN CELL VOLUME 87.9 fl (80-96); MEAN PLT VOLUME 6.6 fl (7.5-11.1); RBC 2.88 M/mm3 (3.60-5.2); RDW 13.8 % (11.6-15.6); WHITE BLOOD COUNT 21.8 K/mm3 (4.0-10.0)
[2023-05-30 09:22] LABS: PLATELET COUNT 1239 10^3/uL (134-434)
[2023-05-30] MEDS: TRIMETHOBENZAMIDE HCL 200MG/2ML INJ IM PRN (09:33)
[2023-05-30 09:39] LABS: POTASSIUM 4.2 mmol/L (3.5-5.1)
[2023-05-30 09:47] LABS: CALCIUM 8.8 mg/dL (8.5-10.1)
[2023-05-30 09:48] LABS: BLOOD UREA NITROGEN 9.1 mg/dL (7-18)
[2023-05-30 09:48] LABS: BILIRUBIN,DIRECT 0.1 mg/dL (0.0-0.2)
[2023-05-30 09:49] LABS: BILIRUBIN,TOTAL 0.3 mg/dL (0.2-1)
[2023-05-30 09:50] LABS: TOT PROT 6.2 g/dl (6.4-8.2)
[2023-05-30 09:51] LABS: CREATININE 0.9 mg/dL (0.55-1.3)
[2023-05-30] MEDS: PSYLLIUM 5.85 GM PACKET PO SCH ×3 (09:55→21:28)
[2023-05-30] MEDS: LISINOPRIL 20 MG TABLET PO SCH (09:55)
[2023-05-30] MEDS: ENOXAPARIN NA (PORCINE) 40 MG/0.4 ML DISP.SYRIN SQ SCH (09:55)
[2023-05-30] MEDS: HYDROCHLOROTHIAZIDE 25 MG TABLET (FP) PO SCH (09:55)
[2023-05-30] MEDS: PANTOPRAZOLE SODIUM 40 MG VIAL IVPUSH SCH (09:55)
[2023-05-30] MEDS: ASPIRIN 81 MG CHEWABLE TABLETS PO SCH (09:55)
[2023-05-30 10:02] LABS: ANISOCYTOSIS 0; MACROCYTOSIS 0
[2023-05-30] MEDS: FAMOTIDINE 20 MG TABLET PO SCH (10:41)
[2023-05-30] MEDS: SUCRALFATE 1 GM/10 ML UNIT DOSE CUPS PO SCH ×3 (14:12→21:28)
[2023-05-30] MEDS: SODIUM CHLORIDE 1,000 ML IV SCH (15:15)
[2023-05-31 10:05] LABS: BASO % 0.3 % (0-2.0); EOS % 2.3 % (0-4.5); HEMATOCRIT 25.2 % (32.4-45.2); HEMOGLOBIN 8.4 GM/dL (10.7-15.3); LYMPH % 9.2 % (8-40); MCH 29.5 pg (25.7-33.7); MCHC 33.2 g/dl (32.0-36.0); MEAN CELL VOLUME 88.8 fl (80-96); MEAN PLT VOLUME 6.9 fl (7.5-11.1); MONO % 7.2 % (3.8-10.2); RBC 2.84 M/mm3 (3.60-5.2); RDW 13.7 % (11.6-15.6)
[2023-05-31 10:12] LABS: PLATELET COUNT 1253 10^3/uL (134-434)
[2023-05-31 10:21] LABS: POTASSIUM 4.5 mmol/L (3.5-5.1)
[2023-05-31 10:38] LABS: CALCIUM 8.6 mg/dL (8.5-10.1)
[2023-05-31 10:39] LABS: BLOOD UREA NITROGEN 9.5 mg/dL (7-18); MAGNESIUM 2.2 mg/dL (1.8-2.4)
[2023-05-31 10:42] LABS: CREATININE 0.8 mg/dL (0.55-1.3)
[2023-05-31] MEDS: PSYLLIUM 5.85 GM PACKET PO SCH ×2 (10:51→21:47)
[2023-05-31] MEDS: ENOXAPARIN NA (PORCINE) 40 MG/0.4 ML DISP.SYRIN SQ SCH (10:51)
[2023-05-31] MEDS: PANTOPRAZOLE SODIUM 40 MG VIAL IVPUSH SCH (10:52)
[2023-05-31] MEDS: HYDROCHLOROTHIAZIDE 25 MG TABLET (FP) PO SCH (10:52)
[2023-05-31] MEDS: FAMOTIDINE 20 MG TABLET PO SCH (10:52)
[2023-05-31] MEDS: LISINOPRIL 20 MG TABLET PO SCH (10:52)
[2023-05-31] MEDS: ASPIRIN 81 MG CHEWABLE TABLETS PO SCH (10:52)
[2023-05-31] MEDS: SUCRALFATE 1 GM/10 ML UNIT DOSE CUPS PO SCH ×3 (12:32→21:47)
[2023-05-31] MEDS: SODIUM CHLORIDE 1,000 ML IV SCH (12:32)
[2023-05-31] MEDS ORDERED: SODIUM CHLORIDE 1,000 ML IV SCH (17:15)
[2023-06-01] MEDS: SUCRALFATE 1 GM/10 ML UNIT DOSE CUPS PO SCH ×4 (06:09→22:00)
[2023-06-01] MEDS: LISINOPRIL 20 MG TABLET PO SCH (09:04)
[2023-06-01] MEDS: HYDROCHLOROTHIAZIDE 25 MG TABLET (FP) PO SCH (09:04)
[2023-06-01] MEDS: PSYLLIUM 5.85 GM PACKET PO SCH ×2 (09:13→22:00)
[2023-06-01] MEDS: FAMOTIDINE 20 MG TABLET PO SCH (09:13)
[2023-06-01] MEDS: ASPIRIN 81 MG CHEWABLE TABLETS PO SCH (09:13)
[2023-06-01] MEDS: PANTOPRAZOLE SODIUM 40 MG VIAL IVPUSH SCH (09:24)
[2023-06-01 10:04] LABS: BASO % 0.2 % (0-2.0); EOS % 2.1 % (0-4.5); HEMATOCRIT 24.9 % (32.4-45.2); MCH 27.9 pg (25.7-33.7); MEAN CELL VOLUME 87.1 fl (80-96); MONO % 8.9 % (3.8-10.2); NEUT % 78.8 % (42.8-82.8); RBC 2.86 M/mm3 (3.60-5.2); RDW 13.6 % (11.6-15.6); WHITE BLOOD COUNT 15.1 K/mm3 (4.0-10.0)
[2023-06-01 10:07] LABS: PLATELET COUNT 1145 10^3/uL (134-434)
[2023-06-01 10:18] LABS: POTASSIUM 4.5 mmol/L (3.5-5.1)
[2023-06-01 10:20] LABS: CALCIUM 8.2 mg/dL (8.5-10.1)
[2023-06-01 10:21] LABS: BLOOD UREA NITROGEN 8.5 mg/dL (7-18)
[2023-06-01 10:24] LABS: CREATININE 0.8 mg/dL (0.55-1.3)
[2023-06-01] MEDS: ENOXAPARIN NA (PORCINE) 40 MG/0.4 ML DISP.SYRIN SQ SCH (12:32)
[2023-06-01] MEDS: CLOTRIMAZOLE/BETAMET DIPROP 15 GM TUBE TP SCH ×2 (13:09→22:01)
[2023-06-02] MEDS: SUCRALFATE 1 GM/10 ML UNIT DOSE CUPS PO SCH ×4 (06:15→21:55)
[2023-06-02 07:54] LABS: HEMATOCRIT 25.5 % (32.4-45.2); HEMOGLOBIN 8.3 GM/dL (10.7-15.3); MCH 28.8 pg (25.7-33.7); MCHC 32.5 g/dl (32.0-36.0); MEAN CELL VOLUME 88.6 fl (80-96); MEAN PLT VOLUME 6.8 fl (7.5-11.1); PLATELET COUNT 1086 10^3/uL (134-434); RBC 2.88 M/mm3 (3.60-5.2); RDW 13.6 % (11.6-15.6); WHITE BLOOD COUNT 14.6 K/mm3 (4.0-10.0)
[2023-06-02 08:08] LABS: CALCIUM 8.7 mg/dL (8.5-10.1); POTASSIUM 4.1 mmol/L (3.5-5.1)
[2023-06-02 08:10] LABS: BLOOD UREA NITROGEN 10.1 mg/dL (7-18)
[2023-06-02 08:13] LABS: CREATININE 0.8 mg/dL (0.55-1.3)
[2023-06-02] MEDS: ENOXAPARIN NA (PORCINE) 40 MG/0.4 ML DISP.SYRIN SQ SCH (10:32)
[2023-06-02] MEDS: HYDROCHLOROTHIAZIDE 25 MG TABLET (FP) PO SCH (10:32)
[2023-06-02] MEDS: ASPIRIN 81 MG CHEWABLE TABLETS PO SCH (10:32)
[2023-06-02] MEDS: FAMOTIDINE 20 MG TABLET PO SCH (10:32)
[2023-06-02] MEDS: PSYLLIUM 5.85 GM PACKET PO SCH ×2 (10:32→21:55)
[2023-06-02] MEDS: PANTOPRAZOLE SODIUM 40 MG VIAL IVPUSH SCH (10:32)
[2023-06-02] MEDS: LISINOPRIL 20 MG TABLET PO SCH (10:32)
[2023-06-02] MEDS: CLOTRIMAZOLE/BETAMET DIPROP 15 GM TUBE TP SCH ×2 (10:33→21:56)
[2023-06-02 10:56] LABS: ANISOCYTOSIS 2+; MACROCYTOSIS 0
[2023-06-03] MEDS: SUCRALFATE 1 GM/10 ML UNIT DOSE CUPS PO SCH ×4 (05:59→21:30)
[2023-06-03 09:33] LABS: BASO % 0.6 % (0-2.0); EOS % 2.3 % (0-4.5); HEMATOCRIT 27.2 % (32.4-45.2); HEMOGLOBIN 8.9 GM/dL (10.7-15.3); LYMPH % 12.5 % (8-40); MCH 29.1 pg (25.7-33.7); MCHC 32.6 g/dl (32.0-36.0); MEAN CELL VOLUME 89.4 fl (80-96); MONO % 8.2 % (3.8-10.2); NEUT % 76.4 % (42.8-82.8); RBC 3.04 M/mm3 (3.60-5.2); RDW 13.6 % (11.6-15.6); WHITE BLOOD COUNT 13.7 K/mm3 (4.0-10.0)
[2023-06-03 09:36] LABS: PLATELET COUNT 1115 10^3/uL (134-434)
[2023-06-03] MEDS: FAMOTIDINE 20 MG TABLET PO SCH (10:26)
[2023-06-03] MEDS: LISINOPRIL 20 MG TABLET PO SCH (10:26)
[2023-06-03] MEDS: ENOXAPARIN NA (PORCINE) 40 MG/0.4 ML DISP.SYRIN SQ SCH (10:26)
[2023-06-03] MEDS: PANTOPRAZOLE SODIUM 40 MG VIAL IVPUSH SCH (10:26)
[2023-06-03] MEDS: ASPIRIN 81 MG CHEWABLE TABLETS PO SCH (10:27)
[2023-06-03] MEDS: CLOTRIMAZOLE/BETAMET DIPROP 15 GM TUBE TP SCH ×2 (10:27→21:30)
[2023-06-03 10:29] LABS: BLOOD UREA NITROGEN 13.3 mg/dL (7-18); CALCIUM 9.6 mg/dL (8.5-10.1); POTASSIUM 4.4 mmol/L (3.5-5.1)
[2023-06-03] MEDS: HYDROCHLOROTHIAZIDE 25 MG TABLET (FP) PO SCH (10:37)
[2023-06-03] MEDS: PSYLLIUM 5.85 GM PACKET PO SCH ×2 (10:37→22:36)
[2023-06-04] MEDS: SUCRALFATE 1 GM/10 ML UNIT DOSE CUPS PO SCH ×4 (06:06→21:46)
[2023-06-04] MEDS: ASPIRIN 81 MG CHEWABLE TABLETS PO SCH (10:00)
[2023-06-04] MEDS: LISINOPRIL 20 MG TABLET PO SCH (10:00)
[2023-06-04] MEDS: FAMOTIDINE 20 MG TABLET PO SCH (10:00)
[2023-06-04] MEDS: ENOXAPARIN NA (PORCINE) 40 MG/0.4 ML DISP.SYRIN SQ SCH (10:00)
[2023-06-04] MEDS: HYDROCHLOROTHIAZIDE 25 MG TABLET (FP) PO SCH (10:00)
[2023-06-04] MEDS: PSYLLIUM 5.85 GM PACKET PO SCH ×2 (10:01→21:46)
[2023-06-04] MEDS: CLOTRIMAZOLE/BETAMET DIPROP 15 GM TUBE TP SCH ×2 (10:02→21:46)
[2023-06-04] MEDS: PANTOPRAZOLE SODIUM 40 MG VIAL IVPUSH SCH (11:39)
[2023-06-04 18:32] VITALS: RESP 18
[2023-06-05] MEDS ORDERED: PANTOPRAZOLE 40 MG TABLET PO SCH (10:00)
[2023-06-05] MEDS: HYDROCHLOROTHIAZIDE 25 MG TABLET (FP) PO SCH (10:35)
[2023-06-05] MEDS: LISINOPRIL 20 MG TABLET PO SCH (10:35)
[2023-06-05] MEDS: PSYLLIUM 5.85 GM PACKET PO SCH (10:35)
[2023-06-05] MEDS: ENOXAPARIN NA (PORCINE) 40 MG/0.4 ML DISP.SYRIN SQ SCH (10:35)
[2023-06-05] MEDS: SUCRALFATE 1 GM/10 ML UNIT DOSE CUPS PO SCH ×2 (10:35→12:05)
[2023-06-05] MEDS: FAMOTIDINE 20 MG TABLET PO SCH (10:35)
[2023-06-05] MEDS: ASPIRIN 81 MG CHEWABLE TABLETS PO SCH (10:35)
[2023-06-05] MEDS: CLOTRIMAZOLE/BETAMET DIPROP 15 GM TUBE TP SCH (11:41)
[2023-06-05 15:04] VITALS: BP 115/51; PULSE 85; TEMP 98.2
== END 2023-06-05 14:52 | disposition home health service (06) | DRG 853 ==
LOC: JER 12:39 → JERBED 21:57 → J7W 05-17 09:03 → OBSVTOIN 05-20 08:18 → JICU 05-22 01:37 → J7W 05-23 15:00
PROVIDERS: ADMIT Internal Medicine; ATTEND Nurse Practitioner Acute Care
PROC: 0D1B0Z4 Bypass Ileum to Cutaneous, Open Approach (ICD-10-PCS; 2023-05-21)
PROC: 0DBN0ZZ Excision of Sigmoid Colon, Open Approach (ICD-10-PCS; 2023-05-21)
PROC: 30233N1 Transfusion of Nonautologous Red Blood Cells into Peripheral Vein, Percutaneous Approach (ICD-10-PCS; 2023-05-21)
PROC: 0T9B80Z Drainage of Bladder with Drainage Device, Via Natural or Artificial Opening Endoscopic (ICD-10-PCS; 2023-05-21)
PROC: 0DTB0ZZ Resection of Ileum, Open Approach (ICD-10-PCS; principal; 2023-05-21 14:30)
PROC: 0DNW0ZZ Release Peritoneum, Open Approach (ICD-10-PCS; 2023-05-21 14:30)
PROC: 0W9G30Z Drainage of Peritoneal Cavity with Drainage Device, Percutaneous Approach (ICD-10-PCS; 2023-05-29)
DX: A41.89 Other specified sepsis (principal); J18.9 Pneumonia, unspecified organism; K65.1 Peritoneal abscess; K57.20 Diverticulitis of large intestine with perforation and abscess without bleeding; J98.11 Atelectasis; J90 Pleural effusion, not elsewhere classified; E87.1 Hypo-osmolality and hyponatremia; I10 Essential (primary) hypertension; E78.00 Pure hypercholesterolemia, unspecified; R55 Syncope and collapse; D72.829 Elevated white blood cell count, unspecified; D63.8 Anemia in other chronic diseases classified elsewhere; E04.1 Nontoxic single thyroid nodule; E05.90 Thyrotoxicosis, unspecified without thyrotoxic crisis or storm; R10.13 Epigastric pain; D69.6 Thrombocytopenia, unspecified; I95.9 Hypotension, unspecified; R50.9 Fever, unspecified; K44.9 Diaphragmatic hernia without obstruction or gangrene; K66.0 Peritoneal adhesions (postprocedural) (postinfection); Z93.2 Ileostomy status; Z88.1 Allergy status to other antibiotic agents; Z53.31 Laparoscopic surgical procedure converted to open procedure
CPT/HCPCS: 0241U-QW; 36415; 36430; 49406; 70450-TC; 71045-TC-FY; 71250-TC; 73030-TC-RT-FY; 74018-TC-FY; 74177-TC; 76775-TC; 77012-TC; 80048; 80053; 80076; 81003; 82728; 82784; 83010; 83540; 83550; 83605; 83615; 83735; 83883; 84100; 84155; 84165; 84439; 84443; 84484; 85025; 85027; 85045; 85610; 85730; 86140; 86850; 86900; 86901; 86922; 87040; 87070; 87075; 87086; 87102; 87116; 87205; 87206; 87210; 87324; 87449; 87635; 93005; 93010; 94760; 97116-GP; 97161-GP; 99285-25; G0378; J1644; P9038; P9058; Q0162; Q9967

== ENCOUNTER 2023-07-14 15:38 | Inpatient (IN) | payer MEDICARE ==
[2023-07-14 16:14] VITALS: BMI 21.9
[2023-07-14] MEDS ORDERED: ACETAMINOPHEN INJECTION 100 ML IVPB ONE ×2 (16:23→17:43)
[2023-07-14] MEDS ORDERED: ONDANSETRON 4 MG/2 ML VIAL ONE (16:24)
[2023-07-14 17:46] LABS: BASO % 0.2 % (0-2.0); HEMATOCRIT 38.1 % (32.4-45.2); HEMOGLOBIN 12.9 GM/dL (10.7-15.3); LYMPH % 14.4 % (8-40); MCH 28.2 pg (25.7-33.7); MCHC 33.9 g/dl (32.0-36.0); MEAN CELL VOLUME 83.2 fl (80-96); MEAN PLT VOLUME 7.7 fl (7.5-11.1); MONO % 4.3 % (3.8-10.2); NEUT % 81.1 % (42.8-82.8); PLATELET COUNT 716 10^3/uL (134-434); RBC 4.58 M/mm3 (3.60-5.2); RDW 14.8 % (11.6-15.6); WHITE BLOOD COUNT 16.5 K/mm3 (4.0-10.0)
[2023-07-14] MEDS: ONDANSETRON 4 MG/2 ML VIAL IVPUSH ONE (17:49)
[2023-07-14] MEDS: ACETAMINOPHEN 1000 MG/100 ML BAG IVPB ONE (17:49)
[2023-07-14 17:53] LABS: CHLORIDE 93 mmol/L (98-107); SODIUM 129 mmol/L (136-145)
[2023-07-14 17:57] LABS: ALBUMIN 5.1 g/dl (3.4-5.0); BLOOD UREA NITROGEN 89.2 mg/dL (7-18); CO2 20 mmol/L (21-32); GLUCOSE,RANDOM 130 mg/dL (74-106); MAGNESIUM 1.4 mg/dL (1.8-2.4)
[2023-07-14 17:58] LABS: SGOT/AST 23 U/L (15-37); SGPT/ALT 38 U/L (13-61)
[2023-07-14 17:59] LABS: CREATININE 6.5 mg/dL (0.55-1.3)
[2023-07-14 18:00] LABS: BILIRUBIN,TOTAL 0.6 mg/dL (0.2-1); TOT PROT 11.6 g/dl (6.4-8.2)
[2023-07-14 18:01] LABS: ALK PHOS 95 U/L (45-117)
[2023-07-14 18:03] LABS: ANION GAP 16 mmol/L (4-13); POTASSIUM 7.7 mmol/L (3.5-5.1)
[2023-07-14] MEDS ORDERED: CALCIUM GLUCONATE 10% - 1,000 MG/10 ML VIAL ONE (18:16)
[2023-07-14] MEDS ORDERED: DEXTROSE 50%-WATER 25 GM/50 ML DISP.SYRIN ONE ×2 (18:16→20:41)
[2023-07-14] MEDS ORDERED: INSULIN REGULAR HUMAN 100 UNITS/ML *VIAL ONE (18:16)
[2023-07-14] MEDS: CALCIUM GLUCONATE 10% - 1,000 MG/10 ML VIAL IVPUSH ONE (18:58)
[2023-07-14] MEDS: DEXTROSE 50%-WATER - 25 GM/50 ML VIAL IVPUSH ONE ×2 (18:58→20:58)
[2023-07-14] MEDS: LACTATED RINGERS SOLUTION 1000 ML INFUS.BAG IV ONE (18:58)
[2023-07-14] MEDS: INSULIN REGULAR HUMAN 100 UNITS/ML *VIAL IVPUSH ONE (18:58)
[2023-07-14] MEDS: SODIUM CHLORIDE 0.9% 500 ML INFUS.BAG IV ONE (19:07)
[2023-07-14] MEDS: SODIUM CHLORIDE 1,000 ML IV STA (20:11)
[2023-07-14] MEDS ORDERED: MAGNESIUM SULFATE IN WATER 2 GM/50 ML IVPB IVPB ONE (20:42)
[2023-07-14] MEDS: MAGNESIUM SULFATE IN WATER 2 GM/50 ML IVPB IVPB ONE (20:58)
[2023-07-14] MEDS ORDERED: SODIUM ZIRCONIUM CYCLOSILICATE (LOKELMA) 10 GM PACKET ONE (20:59)
[2023-07-14] MEDS: SODIUM ZIRCONIUM CYCLOSILICATE (LOKELMA) 5 GM PACKET PO ONE (21:04)
[2023-07-14] MEDS ORDERED: ONDANSETRON 4 MG/2 ML VIAL IVPUSH PRN (22:09)
[2023-07-14 22:44] LABS: INR 1.16 (0.83-1.09); PROTHROMBIN TIME (PATIENT) 13.4 SEC (9.7-13.0)
[2023-07-14 22:55] LABS: POTASSIUM 5.4 mmol/L (3.5-5.1)
[2023-07-14 22:56] LABS: CALCIUM 9.5 mg/dL (8.5-10.1)
[2023-07-14 22:57] LABS: BLOOD UREA NITROGEN 79.5 mg/dL (7-18); MAGNESIUM 2.5 mg/dL (1.8-2.4)
[2023-07-14 23:00] LABS: CREATININE 5.7 mg/dL (0.55-1.3)
[2023-07-14 23:02] LABS: BILIRUBIN,TOTAL 0.5 mg/dL (0.2-1)
[2023-07-14 23:11] LABS: ALBUMIN 3.4 g/dl (3.4-5.0); LACTIC ACID 3.4 mmol/L (0.4-2.0); TOT PROT 7.5 g/dl (6.4-8.2)
[2023-07-14] MEDS: HEPARIN NA (PORCINE) 5,000 UNITS/ML 1ML VIAL SQ SCH (23:39)
[2023-07-14] MEDS: MUPIROCIN 2% TOPICAL OINTMENT FOR DECOLONIZATION NS SCH (23:39)
[2023-07-14] MEDS: CHLORHEXIDINE GLUCONATE 4% CLEANSER FOR DECOLONIZATION TP SCH (23:39)
[2023-07-14] MEDS: CEFTRIAXONE 1 GM in DEXTROSE 5%-WATER - 50 ML IVPB SCH (23:40)
[2023-07-14] MEDS: SODIUM CHLORIDE 0.45% 1,000 ML IV SCH (23:40)
[2023-07-14 23:42] LABS: EPI CELLS >36 /uL (0-25.1); HYALINE CASTS 23 /uL (0-3.1); URINE APPEARANCE CLOUDY; URINE BACTERIA 21 /uL (0-1359); URINE BILIRUBIN NEGATIVE (NEGATIVE); URINE COLOR YELLOW; URINE GLUCOSE (UA) 1+ (NEGATIVE); URINE KETONE NEGATIVE (NEGATIVE); URINE LEUK ESTERASE NEGATIVE (NEGATIVE); URINE NITRITE NEGATIVE (NEGATIVE); URINE PROTEIN 1+ (NEGATIVE); URINE RBC 50 /uL (0-23.9); URINE UROBILINOGEN 0.2 mg/dL (0.2-1.0); URINE WBC 26 /uL (0-25.8)
[2023-07-15 07:27] LABS: BASO % 0.5 % (0-2.0); EOS % 0.2 % (0-4.5); HEMATOCRIT 26.1 % (32.4-45.2); HEMOGLOBIN 8.7 GM/dL (10.7-15.3); LYMPH % 22.7 % (8-40); MCHC 33.4 g/dl (32.0-36.0); MEAN CELL VOLUME 83.8 fl (80-96); MEAN PLT VOLUME 8.1 fl (7.5-11.1); MONO % 8.2 % (3.8-10.2); NEUT % 68.4 % (42.8-82.8); PLATELET COUNT 414 10^3/uL (134-434); RBC 3.11 M/mm3 (3.60-5.2); RDW 14.1 % (11.6-15.6); WHITE BLOOD COUNT 12.8 K/mm3 (4.0-10.0)
[2023-07-15 07:42] LABS: POTASSIUM 4.9 mmol/L (3.5-5.1)
[2023-07-15 07:49] LABS: ALBUMIN 3.2 g/dl (3.4-5.0)
[2023-07-15 07:50] LABS: BLOOD UREA NITROGEN 68.1 mg/dL (7-18); MAGNESIUM 1.8 mg/dL (1.8-2.4)
[2023-07-15 07:52] LABS: CREATININE 4.8 mg/dL (0.55-1.3); PHOSPHOROUS 5.7 mg/dL (2.5-4.9)
[2023-07-15 07:54] LABS: BILIRUBIN,TOTAL 0.4 mg/dL (0.2-1); TOT PROT 7.1 g/dl (6.4-8.2)
[2023-07-15] MEDS: PANTOPRAZOLE SODIUM 40 MG VIAL IVPUSH SCH (10:06)
[2023-07-15] MEDS: SODIUM CHLORIDE 1,000 ML IV SCH (15:15)
[2023-07-15 18:21] LABS: HEMATOCRIT 26.3 % (32.4-45.2); HEMOGLOBIN 8.6 GM/dL (10.7-15.3); MCHC 32.6 g/dl (32.0-36.0); MEAN PLT VOLUME 7.7 fl (7.5-11.1); PLATELET COUNT 390 10^3/uL (134-434); RBC 3.06 M/mm3 (3.60-5.2); RDW 14.4 % (11.6-15.6); WHITE BLOOD COUNT 11.3 K/mm3 (4.0-10.0)
[2023-07-15] MEDS ORDERED: ONDANSETRON 4 MG/2 ML VIAL IVPUSH PRN (18:58)
[2023-07-15] MEDS ORDERED: CHLORHEXIDINE GLUCONATE 4% CLEANSER FOR DECOLONIZATION TP SCH (22:00)
[2023-07-15] MEDS ORDERED: MUPIROCIN 2% TOPICAL OINTMENT FOR DECOLONIZATION NS SCH (22:00)
[2023-07-15] MEDS: HEPARIN NA (PORCINE) 5,000 UNITS/ML 1ML VIAL SQ SCH (22:06)
[2023-07-16 09:15] LABS: HEMATOCRIT 24.6 % (32.4-45.2); HEMOGLOBIN 8.1 GM/dL (10.7-15.3); MCH 28.2 pg (25.7-33.7); MCHC 32.8 g/dl (32.0-36.0); MEAN CELL VOLUME 85.9 fl (80-96); MEAN PLT VOLUME 7.8 fl (7.5-11.1); PLATELET COUNT 333 10^3/uL (134-434); RBC 2.86 M/mm3 (3.60-5.2); RDW 14.7 % (11.6-15.6); WHITE BLOOD COUNT 8.7 K/mm3 (4.0-10.0)
[2023-07-16] MEDS: PANTOPRAZOLE SODIUM 40 MG VIAL IVPUSH SCH (09:29)
[2023-07-16] MEDS: CEFTRIAXONE 1 GM in DEXTROSE 5%-WATER - 50 ML IVPB SCH (09:29)
[2023-07-16 09:44] LABS: POTASSIUM 4.1 mmol/L (3.5-5.1)
[2023-07-16 09:54] LABS: ALBUMIN 2.8 g/dl (3.4-5.0); BLOOD UREA NITROGEN 53.8 mg/dL (7-18); CALCIUM 8.5 mg/dL (8.5-10.1)
[2023-07-16 09:55] LABS: MAGNESIUM 1.7 mg/dL (1.8-2.4)
[2023-07-16 09:56] LABS: CREATININE 2.6 mg/dL (0.55-1.3)
[2023-07-16 09:58] LABS: BILIRUBIN,TOTAL 0.3 mg/dL (0.2-1); TOT PROT 6.4 g/dl (6.4-8.2)
[2023-07-16 10:02] LABS: PHOSPHOROUS 3.7 mg/dL (2.5-4.9)
[2023-07-16] MEDS: LOPERAMIDE HCL 2 MG CAPSULE PO SCH (12:43)
[2023-07-16] MEDS: MAGNESIUM OXIDE 400 MG TABLET (FP) PO ONE (15:22)
[2023-07-17 08:26] LABS: BASO % 0.5 % (0-2.0); EOS % 1.2 % (0-4.5); HEMATOCRIT 26.4 % (32.4-45.2); HEMOGLOBIN 8.8 GM/dL (10.7-15.3); MCH 28.1 pg (25.7-33.7); MCHC 33.2 g/dl (32.0-36.0); MEAN CELL VOLUME 84.9 fl (80-96); MEAN PLT VOLUME 8.2 fl (7.5-11.1); NEUT % 62.3 % (42.8-82.8); PLATELET COUNT 334 10^3/uL (134-434); RBC 3.11 M/mm3 (3.60-5.2); RDW 14.9 % (11.6-15.6); WHITE BLOOD COUNT 10.9 K/mm3 (4.0-10.0)
[2023-07-17 08:42] LABS: ALBUMIN 2.8 g/dl (3.4-5.0); BLOOD UREA NITROGEN 30.2 mg/dL (7-18); CALCIUM 8.6 mg/dL (8.5-10.1); MAGNESIUM 1.5 mg/dL (1.8-2.4)
[2023-07-17 08:45] LABS: CREATININE 1.7 mg/dL (0.55-1.3)
[2023-07-17 08:47] LABS: BILIRUBIN,TOTAL 0.2 mg/dL (0.2-1); TOT PROT 6.5 g/dl (6.4-8.2)
[2023-07-17] MEDS: PSYLLIUM 5.85 GM PACKET PO SCH (09:24)
[2023-07-17] MEDS: MAGNESIUM 2GM/50ML STERILE WATER IVPB IVPB ONE (11:08)
[2023-07-17] MEDS: SODIUM CHLORIDE 1,000 ML IV SCH (11:08)
[2023-07-17] MEDS: MAGNESIUM OXIDE 400 MG TABLET (FP) PO ONE (19:36)
[2023-07-18 08:15] LABS: BASO % 0.4 % (0-2.0); EOS % 3.5 % (0-4.5); HEMATOCRIT 23.3 % (32.4-45.2); HEMOGLOBIN 7.7 GM/dL (10.7-15.3); LYMPH % 28.6 % (8-40); MCH 28.3 pg (25.7-33.7); MEAN CELL VOLUME 85.7 fl (80-96); MEAN PLT VOLUME 7.7 fl (7.5-11.1); MONO % 7.3 % (3.8-10.2); NEUT % 60.2 % (42.8-82.8); PLATELET COUNT 324 10^3/uL (134-434); POTASSIUM 3.9 mmol/L (3.5-5.1); RBC 2.72 M/mm3 (3.60-5.2); RDW 14.5 % (11.6-15.6)
[2023-07-18 08:20] LABS: ALBUMIN 2.4 g/dl (3.4-5.0); MAGNESIUM 1.7 mg/dL (1.8-2.4)
[2023-07-18 08:23] LABS: CREATININE 1.4 mg/dL (0.55-1.3)
[2023-07-18 08:25] LABS: BILIRUBIN,TOTAL 0.3 mg/dL (0.2-1); TOT PROT 5.8 g/dl (6.4-8.2)
[2023-07-18] MEDS: FERROUS SO4 325 MG TABLET (FP) PO SCH (13:44)
[2023-07-18] MEDS: MULTIVITAMINS (DAILY MVI) TABLET (FP) PO SCH (13:45)
[2023-07-18 14:17] LABS: IRON SERUM 40 ug/dL (50-175); TOTAL IRON BINDING CAPACITY 237 ug/dL (250-450)
[2023-07-19 09:27] LABS: BASO % 0.2 % (0-2.0); EOS % 4.5 % (0-4.5); HEMATOCRIT 24.5 % (32.4-45.2); HEMOGLOBIN 8.1 GM/dL (10.7-15.3); LYMPH % 29.1 % (8-40); MCH 28.2 pg (25.7-33.7); MCHC 33.1 g/dl (32.0-36.0); MEAN CELL VOLUME 85.1 fl (80-96); MEAN PLT VOLUME 7.5 fl (7.5-11.1); MONO % 5.6 % (3.8-10.2); NEUT % 60.6 % (42.8-82.8); PLATELET COUNT 338 10^3/uL (134-434); RBC 2.88 M/mm3 (3.60-5.2); RDW 14.7 % (11.6-15.6); WHITE BLOOD COUNT 8.1 K/mm3 (4.0-10.0)
[2023-07-19 09:39] LABS: POTASSIUM 3.7 mmol/L (3.5-5.1)
[2023-07-19 09:44] LABS: ALBUMIN 2.5 g/dl (3.4-5.0); CALCIUM 8.3 mg/dL (8.5-10.1)
[2023-07-19 09:45] LABS: MAGNESIUM 1.5 mg/dL (1.8-2.4)
[2023-07-19 09:47] LABS: CREATININE 1.2 mg/dL (0.55-1.3)
[2023-07-19 09:49] LABS: BILIRUBIN,TOTAL 0.4 mg/dL (0.2-1)
[2023-07-19] MEDS: MAGNESIUM OXIDE 400 MG TABLET (FP) PO ONE (12:10)
[2023-07-19 14:43] VITALS: BP 104/55; PULSE 75; RESP 18; TEMP 98.8
== END 2023-07-19 20:09 | disposition home or self-care (01) | DRG 683 ==
LOC: JER 15:38 → JERBED 18:10 → JICU 21:48 → J8W 07-15 18:45
PROVIDERS: ADMIT Internal Medicine Pulmonary Disease; ATTEND Nurse Practitioner Family
DX: N17.9 Acute kidney failure, unspecified (principal); E87.1 Hypo-osmolality and hyponatremia; I10 Essential (primary) hypertension; E78.5 Hyperlipidemia, unspecified; Z93.2 Ileostomy status; K57.90 Diverticulosis of intestine, part unspecified, without perforation or abscess without bleeding; E87.5 Hyperkalemia
CPT/HCPCS: 0241U-QW; 36415; 74176-TC; 76775-TC; 80053; 81003; 82570; 82962; 83540; 83550; 83605; 83690; 83735; 83935; 84100; 84300; 84484; 85025; 85027; 85610; 86850; 86870; 86880; 86900; 86901; 86902; 87040; 87086; 93005; 93010; 97116-GP; 97161-GP; 99285-25; J0131; J1644

== ENCOUNTER 2023-09-03 03:56 | Inpatient (IN) | payer MEDICARE, OTHER ==
[2023-09-03] MEDS: SODIUM CHLORIDE 0.9% 500 ML INFUS.BAG IV ONE ×2 (08:15→17:32)
[2023-09-03] MEDS: MAGNESIUM SULFATE IN WATER 2 GM/50 ML IVPB IVPB ONE ×2 (08:15→11:16)
[2023-09-03 10:55] LABS: POTASSIUM 3.9 mmol/L (3.5-5.1)
[2023-09-03 10:56] LABS: CALCIUM 8.7 mg/dL (8.5-10.1)
[2023-09-03 10:57] LABS: BLOOD UREA NITROGEN 9.4 mg/dL (7-18); MAGNESIUM 1.3 mg/dL (1.8-2.4)
[2023-09-03 11:00] LABS: CREATININE 1.2 mg/dL (0.55-1.3)
[2023-09-03] MEDS ORDERED: MIDAZOLAM HCL 2 MG/2 ML SINGLE DOSE VIAL ONE (14:21)
[2023-09-03] MEDS ORDERED: FENTANYL CITRATE/PF 50 MCG/ML VIAL ONE ×5 (14:25→16:36)
[2023-09-03] MEDS ORDERED: ROCURONIUM BROMIDE 50 MG/5 ML SYRINGE ONE (14:25)
[2023-09-03] MEDS ORDERED: PROPOFOL 20 ML ONE ×2 (14:25→15:42)
[2023-09-03] MEDS ORDERED: BUPIVACAINE HCL/PF 0.5% (5MG/ML) 10 ML VIAL ONE (14:32)
[2023-09-03] MEDS ORDERED: cefOXitin SODIUM 2 GM VIAL (RESTRICTED TO ID) IVPB ONE (14:40)
[2023-09-03] MEDS: cefOXitin SODIUM 2 GM VIAL (RESTRICTED TO ID) IVPB ONE (14:42)
[2023-09-03] MEDS ORDERED: NEOSTIGMINE METHYLSULFATE 0.5 MG/1 ML - 10 ML MDV ONE (15:40)
[2023-09-03] MEDS ORDERED: HYDROmorphone HCl 2 MG/ML VIAL IVPB PRN (15:59)
[2023-09-03] MEDS: ACETAMINOPHEN 1000 MG/100 ML BAG IVPB SCH ×2 (16:21→17:30)
[2023-09-03] MEDS: LACTATED RINGERS SOLUTION 1,000 ML/1,000 ML INFUS.BAG IV SCH (17:00)
[2023-09-03] MEDS: HYDROmorphone HCl 2 MG/ML VIAL IVPB PRN (17:35)
[2023-09-03] MEDS: CEFAZOLIN SODIUM 2 GM in DEXTROSE 5%-WATER 100 ML IVPB SCH (20:07)
[2023-09-04 08:35] LABS: BASO % 0.2 % (0-2.0); EOS % 0.1 % (0-4.5); HEMATOCRIT 24.1 % (32.4-45.2); HEMOGLOBIN 7.9 GM/dL (10.7-15.3); LYMPH % 11.6 % (8-40); MCH 28.6 pg (25.7-33.7); MCHC 32.8 g/dl (32.0-36.0); MEAN CELL VOLUME 87.3 fl (80-96); MEAN PLT VOLUME 7.1 fl (7.5-11.1); MONO % 7.1 % (3.8-10.2); PLATELET COUNT 436 10^3/uL (134-434); RBC 2.76 M/mm3 (3.60-5.2); RDW 14.8 % (11.6-15.6); WHITE BLOOD COUNT 14.1 K/mm3 (4.0-10.0)
[2023-09-04] MEDS: oxyCODONE HCL 5 MG TABLET PO PRN (08:38)
[2023-09-04 08:52] LABS: POTASSIUM 4.7 mmol/L (3.5-5.1)
[2023-09-04 08:57] LABS: BLOOD UREA NITROGEN 10.8 mg/dL (7-18); CALCIUM 8.5 mg/dL (8.5-10.1)
[2023-09-04 08:58] LABS: MAGNESIUM 1.9 mg/dL (1.8-2.4)
[2023-09-04 09:00] LABS: CREATININE 1.2 mg/dL (0.55-1.3); PHOSPHOROUS 4.9 mg/dL (2.5-4.9)
[2023-09-04] MEDS: MAGNESIUM OXIDE 400 MG TABLET (FP) PO ONE (10:20)
[2023-09-04] MEDS: ENOXAPARIN NA (PORCINE) 30 MG/0.3 ML DISP.SYRIN SQ SCH (11:28)
[2023-09-04 14:08] VITALS: BMI 18.8
[2023-09-04] MEDS: AMINO ACIDS/PROTEIN HYDROLYS 30 ML LIQUID.PKT PO SCH (17:22)
[2023-09-04] MEDS: ACETAMINOPHEN 325 MG TABLET (FP) PO SCH (17:22)
[2023-09-04] MEDS: ONDANSETRON 4 MG/2 ML VIAL IVPUSH PRN (21:19)
[2023-09-05] MEDS: oxyCODONE HCL 5 MG TABLET PO PRN (02:19)
[2023-09-05 08:14] LABS: BASO % 0.3 % (0-2.0); EOS % 0.5 % (0-4.5); HEMATOCRIT 22.3 % (32.4-45.2); HEMOGLOBIN 7.2 GM/dL (10.7-15.3); LYMPH % 15.2 % (8-40); MCHC 32.2 g/dl (32.0-36.0); MEAN PLT VOLUME 7.1 fl (7.5-11.1); PLATELET COUNT 430 10^3/uL (134-434); RBC 2.57 M/mm3 (3.60-5.2); RDW 14.8 % (11.6-15.6); WHITE BLOOD COUNT 11.3 K/mm3 (4.0-10.0)
[2023-09-05 08:27] LABS: POTASSIUM 3.7 mmol/L (3.5-5.1)
[2023-09-05 09:03] LABS: BLOOD UREA NITROGEN 10.8 mg/dL (7-18); CALCIUM 8.3 mg/dL (8.5-10.1)
[2023-09-05 09:04] LABS: MAGNESIUM 1.7 mg/dL (1.8-2.4)
[2023-09-05 09:06] LABS: CREATININE 0.9 mg/dL (0.55-1.3); PHOSPHOROUS 2.9 mg/dL (2.5-4.9)
[2023-09-05] MEDS: MAGNESIUM OXIDE 400 MG TABLET (FP) PO SCH (09:54)
[2023-09-06 08:45] LABS: BASO % 0.3 % (0-2.0); EOS % 3.4 % (0-4.5); HEMOGLOBIN 7.3 GM/dL (10.7-15.3); MEAN CELL VOLUME 87.4 fl (80-96); MEAN PLT VOLUME 6.9 fl (7.5-11.1); MONO % 7.2 % (3.8-10.2); NEUT % 74.1 % (42.8-82.8); PLATELET COUNT 461 10^3/uL (134-434); RBC 2.63 M/mm3 (3.60-5.2); RDW 14.4 % (11.6-15.6); WHITE BLOOD COUNT 11.6 K/mm3 (4.0-10.0)
[2023-09-06 09:02] LABS: POTASSIUM 3.5 mmol/L (3.5-5.1)
[2023-09-06 09:06] LABS: CALCIUM 8.8 mg/dL (8.5-10.1)
[2023-09-06 09:07] LABS: BLOOD UREA NITROGEN 12.2 mg/dL (7-18); MAGNESIUM 1.7 mg/dL (1.8-2.4)
[2023-09-06 09:10] LABS: CREATININE 0.9 mg/dL (0.55-1.3); PHOSPHOROUS 2.8 mg/dL (2.5-4.9)
[2023-09-06] MEDS: MAGNESIUM SULF 50% (8.12 MEQ/2 ML-1 GM VIAL) IVPB ONE (10:07)
[2023-09-06] MEDS: POTASSIUM CHLORIDE ORAL LIQUID 20 MEQ/15 ML PO ONE (11:37)
[2023-09-06] MEDS: PSYLLIUM 5.85 GM PACKET PO SCH (13:35)
[2023-09-07 10:18] LABS: BASO % 0.4 % (0-2.0); EOS % 4.8 % (0-4.5); HEMATOCRIT 23.2 % (32.4-45.2); HEMOGLOBIN 7.5 GM/dL (10.7-15.3); LYMPH % 15.5 % (8-40); MCH 28.2 pg (25.7-33.7); MCHC 32.5 g/dl (32.0-36.0); MEAN CELL VOLUME 86.8 fl (80-96); MEAN PLT VOLUME 6.9 fl (7.5-11.1); MONO % 6.6 % (3.8-10.2); NEUT % 72.7 % (42.8-82.8); PLATELET COUNT 510 10^3/uL (134-434); RBC 2.67 M/mm3 (3.60-5.2); RDW 14.3 % (11.6-15.6); WHITE BLOOD COUNT 10.8 K/mm3 (4.0-10.0)
[2023-09-07 10:36] LABS: POTASSIUM 3.8 mmol/L (3.5-5.1)
[2023-09-07 10:39] LABS: ALBUMIN 2.4 g/dl (3.4-5.0); BLOOD UREA NITROGEN 11.3 mg/dL (7-18); CALCIUM 8.1 mg/dL (8.5-10.1); MAGNESIUM 2.1 mg/dL (1.8-2.4)
[2023-09-07 10:42] LABS: CREATININE 0.9 mg/dL (0.55-1.3)
[2023-09-07 10:43] LABS: BILIRUBIN,TOTAL 0.3 mg/dL (0.2-1); TOT PROT 5.8 g/dl (6.4-8.2)
[2023-09-07] MEDS: LACTATED RINGERS SOLUTION 1,000 ML/1,000 ML INFUS.BAG IV SCH (12:20)
[2023-09-08 09:19] LABS: BASO % 0.3 % (0-2.0); EOS % 5.5 % (0-4.5); HEMATOCRIT 25.3 % (32.4-45.2); HEMOGLOBIN 8.4 GM/dL (10.7-15.3); MCH 28.7 pg (25.7-33.7); MEAN PLT VOLUME 6.6 fl (7.5-11.1); MONO % 5.4 % (3.8-10.2); NEUT % 69.8 % (42.8-82.8); PLATELET COUNT 555 10^3/uL (134-434); RBC 2.91 M/mm3 (3.60-5.2); RDW 14.7 % (11.6-15.6); WHITE BLOOD COUNT 9.8 K/mm3 (4.0-10.0)
[2023-09-08 09:49] LABS: ALBUMIN 2.6 g/dl (3.4-5.0); BILIRUBIN,TOTAL 0.4 mg/dL (0.2-1); BLOOD UREA NITROGEN 12.1 mg/dL (7-18); CALCIUM 8.5 mg/dL (8.5-10.1); MAGNESIUM 1.8 mg/dL (1.8-2.4); POTASSIUM 3.2 mmol/L (3.5-5.1); TOT PROT 6.2 g/dl (6.4-8.2)
[2023-09-08] MEDS: POTASSIUM CHLORIDE ORAL LIQUID 20 MEQ/15 ML PO ONE (12:41)
[2023-09-08] MEDS: MAGNESIUM 1GM/D5W 100ML - 100 ML IVPB IVPB ONE (12:41)
[2023-09-09 08:42] LABS: BASO % 0.6 % (0-2.0); EOS % 5.7 % (0-4.5); HEMATOCRIT 24.1 % (32.4-45.2); HEMOGLOBIN 7.7 GM/dL (10.7-15.3); LYMPH % 23.3 % (8-40); MCHC 31.9 g/dl (32.0-36.0); MEAN CELL VOLUME 87.8 fl (80-96); MEAN PLT VOLUME 6.9 fl (7.5-11.1); NEUT % 63.4 % (42.8-82.8); PLATELET COUNT 585 10^3/uL (134-434); RBC 2.74 M/mm3 (3.60-5.2); RDW 14.6 % (11.6-15.6); WHITE BLOOD COUNT 11.5 K/mm3 (4.0-10.0)
[2023-09-09 09:13] LABS: POTASSIUM 3.9 mmol/L (3.5-5.1)
[2023-09-09 09:19] LABS: ALBUMIN 2.8 g/dl (3.4-5.0); BLOOD UREA NITROGEN 11.8 mg/dL (7-18); CALCIUM 8.8 mg/dL (8.5-10.1)
[2023-09-09 09:22] LABS: CREATININE 0.8 mg/dL (0.55-1.3)
[2023-09-09 09:24] LABS: BILIRUBIN,TOTAL 0.7 mg/dL (0.2-1); TOT PROT 6.4 g/dl (6.4-8.2)
[2023-09-09] MEDS: LACTOBACILLUS ACIDOPHILUS 1 TABLET PO SCH (11:26)
[2023-09-09 12:51] VITALS: PULSE 80
[2023-09-09 14:58] VITALS: BP 109/47; RESP 18; TEMP 98
[2023-09-09] MEDS ORDERED: INSULIN (NOVOLOG) ASPART 100 UNITS/ML 10ML VIAL ONE (17:01)
== END 2023-09-09 17:32 | disposition home health service (06) | DRG 329 ==
LOC: J2C 03:56 → EDSTATUS 10:30 → J8W 18:23
PROVIDERS: ADMIT Internal Medicine; ATTEND Internal Medicine
PROC: 0DB80ZZ Excision of Small Intestine, Open Approach (ICD-10-PCS; 2023-09-03)
PROC: 0WQF0ZZ Repair Abdominal Wall, Open Approach (ICD-10-PCS; 2023-09-03)
PROC: 0DQ80ZZ Repair Small Intestine, Open Approach (ICD-10-PCS; 2023-09-03)
PROC: 0DSB0ZZ Reposition Ileum, Open Approach (ICD-10-PCS; principal; 2023-09-03 08:00)
DX: Z43.2 Encounter for attention to ileostomy (principal); E43 Unspecified severe protein-calorie malnutrition; N17.9 Acute kidney failure, unspecified; Z68.1 Body mass index [BMI] 19.9 or less, adult; I10 Essential (primary) hypertension; E87.6 Hypokalemia
CPT/HCPCS: 36415; 80048; 80053; 82728; 83540; 83550; 83735; 84100; 85025; 86140; 86850; 86870; 86880; 86900; 86901; 86902; 88307-TC; 94010; 94760; 97116-GP; 97161-GP; J0131